=== PATIENT | female | born 1945 | race Caucasian/White ===

== ENCOUNTER 2018-04-08 07:45 | Day surgery (SDC) | payer OTHER ==
--- OUTSIDE RECORDS SUMMARY | 2018-04-08 07:50 | XMS REPORT | Clinical Summary ---
:1945 Author Organization [facility] Address [address] [place] [address] Care Team Providers Name Role Phone Angel Zamora MD Primary Care Provider Allergies Active Allergy Reactions Severity Noted Date Comments No Known Drug Allergies 12/28/2015 Current Medications Prescription Sig. Disp. Refills Start End Status Date Date losartan (COZAAR) 50 MG Take 50 mg by Active tablet mouth daily. hydrochlorothiazide Take 25 mg by Active (HYDRODIURIL) 25 MG mouth daily. tablet omeprazole-sodium Take 1 capsule Active bicarbonate (ZEGERID) by mouth daily 40-1.1 mg-gram per before capsule breakfast. LEVOTHYROXINE SODIUM Take 50 mcg by Active (LEVOTHYROXINE ORAL) mouth daily. cycloSPORINE (RESTASIS) Restasis 0.05 % Active 0.05 % ophthalmic eye drops in a emulsion dropperette meclizine (ANTIVERT) 25 TAKE 1 TABLET BY Active mg tablet MOUTH TWICE A DAY NEEDED FOR DIZZINESS triamcinolone (KENALOG) triamcinolone Active 0.1 % paste acetonide 0.1 % dental paste valACYclovir (VALTREX) valacyclovir 1 Active 1000 MG tablet gram tablet [id number] Apply as 1 Tube 0 03/10/[address] (MEDERMA) directed 16 gelIndications: Carpal tunnel syndrome, left, Aftercare following surgery fexofenadine (SHANNA) Take 180 mg by Active 180 MG tablet mouth as needed. aspirin (ECOTRIN) 81 MG Take 81 mg by Active enteric coated tablet mouth daily. CALCIUM CITRATE-VITAMIN Take 1 tablet by Active D2 ORAL mouth 2 (two) times a day. POLYETHYLENE GLYCOL Take by mouth. Active 3350 (MIRALAX ORAL) lansoprazole (PREVACID) Take 15 mg by Active 15 MG capsule mouth daily. dexlansoprazole Take 60 mg by Active (DEXILANT) 60 mg mouth daily. capsule primidone (MYSOLINE) 50 Start 1/2 pill 150 tablet 11 02/05/20 Active MG tablet HS for a week, 18 then increase as instructed up to 5 pills HS DULoxetine (CYMBALTA) TAKE ONE CAPSULE 30 capsule 3 02/12/20 Active 60 MG capsule BY MOUTH DAILY 18 VAGIFEM 10 mcg vaginal INSERT ONE TAB 24 tablet 0 03/18/20 Active tablet VAGINALLY 2 18 TIMES A WEEK DIRECTED venlafaxine (EFFEXOR) Take 75 mg by Discontinued 75 MG tablet mouth every 018 evening. propranolol LA (INDERAL propranolol ER Discontinued LA) 60 MG 24 hr capsule 60 mg capsule,24 018 hr,extended release scopolamine APPLY TO SKIN Discontinued (TRANSDERM-SCOP) 1.5 mg DIRECTED 018 (1 mg over 3 days) amoxicillin (AMOXIL) TAKE 4 CAPSULES Discontinued 500 MG capsule BY MOUTH 1 HOUR 018 PRIOR TO APPOINTMENT anastrozole (ARIMIDEX) anastrozole 1 mg Discontinued 1 mg chemo tablet tablet 018 azithromycin (AZASITE) 1 DROP IN BOTH Discontinued 1 % ophthalmic solution EYES DAILY FOR1 018 WEEK OUT OF EVERY MONTH azithromycin azithromycin 250 Discontinued (ZITHROMAX) 250 MG mg tablet 018 tablet chlordiazepoxide-clidin TAKE ONE CAPSULE Discontinued ium (LIBRAX) 5-2.5 mg BY MOUTH TWICE A 018 per capsule DAY ciprofloxacin (CIPRO) ciprofloxacin Discontinued 500 MG tablet 500 mg tablet 018 erythromycin 0.5% APPLY TO EYELIDS Discontinued (ILOTYCIN) ophthalmic AT BEDTIME FOR 1 018 ointment WEEK fluconazole (DIFLUCAN) TAKE 1 TABLET BY Discontinued 150 MG tablet MOUTH NOW 018 gabapentin (NEURONTIN) gabapentin 300 11/01/19 Discontinued 300 MG capsule mg capsule 12 018 minocycline minocycline 100 Discontinued (MINOCIN,DYNACIN) 100 mg capsule 018 MG capsule tolterodine (DETROL) 1 tolterodine 1 mg Discontinued MG tablet tablet 018 valACYclovir (VALTREX) TAKE 1 TABLET BY Discontinued 500 MG tablet MOUTH EVERY DAY 018 silicone adhesive 1.5 X Apply as 1 each 0 03/10/20 Discontinued 3 " sheetIndications: directed 16 018 Carpal tunnel syndrome, left, Aftercare following surgery YUVAFEM 10 mcg vaginal INSERT 10 MCG 12 tablet 1 03/29/20 Discontinued tablet INTO THE VAGINA 17 017 2 TIMES WEEKLY. VAGIFEM 10 mcg vaginal INSERT 10 MCG 12 tablet 0 06/25/20 Discontinued tablet INTO THE VAGINA 17 018 2 TIMES WEEKLY. VAGIFEM 10 mcg vaginal INSERT ONE TAB 24 tablet 0 10/01/19 Discontinued tablet VAGINALLY 2 18 018 TIMES A WEEK DIRECTED esomeprazole (NexIUM) Take 40 mg by Discontinued 40 MG capsule mouth daily 018 before breakfast. FLUoxetine (PROzac) 40 Take 40 mg by Discontinued MG capsule mouth daily. 018 desvenlafaxine Take 1 tablet 30 tablet 11 10/15/19 Discontinued (PRISTIQ) 50 MG 24 hr (50 mg total) by 18 018 tablet mouth daily. DULoxetine (CYMBALTA) Take 30 mg by Discontinued 30 MG capsule mouth daily. 018 DULoxetine (CYMBALTA) Take 60 mg by Discontinued 60 MG capsule mouth daily. 018 propranolol (INDERAL) 1-2 pill PRN for 90 tablet 11 12/05/19 Discontinued 10 MG tablet tremor up to tid 18 018 VAGIFEM 10 mcg vaginal INSERT ONE TAB 24 tablet 0 12/21/19 Discontinued tablet VAGINALLY 2 18 018 TIMES A WEEK DIRECTED topiramate (TOPAMAX) 25 Start 1 pill HS 120 tablet 11 01/22/20 Discontinued MG tablet for a week, then 18 018 increase as instructed up to 2 pills bid Active Problems Problem Noted Date Pain of hand 02/29/2016 Carpal tunnel syndrome, left 02/29/2016 Psychosis 12/28/2015 Seizure disorder 12/28/2015 Transient ischemia 12/28/2015 Flushing 09/28/2011 Malignant neoplasm of breast 09/28/2011 Reduced libido 09/28/2011 Encounters Date Type Specialty Care Team Description 04/05/2018 Transcribe Orders Access Anu Richards Malignant neoplasm Farooq Jerez MD of left female breast, unspecified estrogen receptor status, unspecified site of breast (Primary Dx) 03/18/2018 Refill Oncology nAu Richards MD 03/14/2018 Orders Only Oncology Kerry South, Malignant neoplasm MA of left female breast, unspecified estrogen receptor status, unspecified site of breast (Primary Dx) 03/11/2018 Telephone Oncology Anu Richards MD 03/01/2018 Telephone Neurology Vanda Hill MD 02/11/2018 Refill Psychiatry Vincent Boogie MD 02/04/2018 Office Visit Neurology Vanda Hill MD Essential tremor (Primary Dx); Depression, unspecified depression type 01/21/2018 Telephone Neurology Vanda Hill MD 01/09/2018 Office Visit Psychiatry Vincent Boogie Dysthytao Driver MD 12/19/2017 Refill Oncology Anu Richards MD 12/04/2017 Office Visit Neurology Vanda Hill MD Essential tremor (Primary Dx); Depression, unspecified depression type 11/02/2017 Abstract Psychiatry Joselin Sheets 11/02/2017 Refill Psychiatry Joselin Sheets 10/15/2017 Office Visit Psychiatry Vincent Boogie Moderate episode of MD Neisha recurrent major depressive disorder 09/28/2017 Refill Oncology Anu Richards MD 07/30/2017 Hospital Encounter Radiation Oncology Nicho Link MD 06/24/2017 Refill Oncology Anu Richards MD after 04/07/2017 Family History Medical History Relation Name Comments Kidney disease Mother Cancer Sister Malignant tumor of breast Cancer Sister melanoma Relation Name Status Comments Mother Sister Sister Social History Tobacco Use Types Packs/Day Years Used Date Never Smoker Smokeless Tobacco: Never Used Alcohol Use Drinks/Week oz/Week Comments Yes Occasional Sex Assigned at Date Recorded Not on file Last Filed Vital Signs Vital Sign Reading Time Taken Blood Pressure 135/88 02/04/2018 1:28 PM CDT Pulse 93 02/04/2018 1:28 PM CDT Temperature - - Respiratory Rate - - Oxygen Saturation - - Inhaled Oxygen Concentration - - Weight 67.7 kg (149 lb 3.2 oz) 02/04/2018 1:28 PM CDT Height 152.4 cm (5') 02/04/2018 1:28 PM CDT Body Mass Index 29.14 02/04/2018 1:28 PM CDT Plan of Treatment Date Type Specialty Care Team Description 04/23/2018 Appointment Radiology Anu Richards MD [address] [id number] 04/23/2018 Appointment Radiology Anu Richards MD [address] [place] [phone] 04/25/2018 Office Visit Oncology Anu Richards MD [address] [place] [address] [phone] 05/06/2018 Office Visit Neurology Vanda Hill MD [address] [phone] 07/29/2018 Appointment [place] [address] [facility] [address] [place] [address] Health Maintenance Due Date Last Done Comments COLON CANCER SCREENING 1996 SHINGRIX VACCINE (#1) 1996 ZOSTER VACCINE 2006 PNEUMOCOCCAL POLYSACCHARIDE VACCINE 12/18/2011 AGE 65 AND OVER PNEUMOCOCCAL-13 12/18/2011 INFLUENZA VACCINE 03/20/2018 BREAST CANCER SCREENING 02/28/2019 02/28/2017, 02/07/2016, 02/07/2016, Additional history exists Results Not on fileafter 04/07/2017 Insurance Payer Benefit Plan / Group Subscriber ID Type Phone Address MEDICARE MEDICARE PART A AND B xxxxxxxxxx Medicare [place], [place] AETNA AETNA HMO,POS,EPO, MC/EC xxxxxxxxx HMO DR [address] [phone] [place], [facility] [phone]
--- OUTSIDE RECORDS SUMMARY | 2018-04-08 07:50 | XMS REPORT | Continuity of Care Document ---
:1945 Author Organization Interface Problems Problem Status Onset Classification Date Comments Source Date Reported PREVENTIVE HEALTH Active 02/27/20 Condition 02/26/2015 CARE 15 Medical Group Screening - Active 02/27/20 Problem 01/09/2018 Data health 15 migrated Medical check<sup>3</sup> from [employer] on 03/24/15. PHARYNGITIS, Active 12/23/19 Condition 02/26/2015 ACUTE 15 Medical Group Acute Active 12/23/19 Problem 01/09/2018 Data pharyngitis<sup>1 15 migrated Medical </sup> from [employer] on 02/24/15. DYSTONIA Active 04/01/20 Condition 02/26/2015 14 Medical Group Dystonia<sup>2</s Active 04/01/20 Problem 01/09/2018 Data up> 14 migrated Medical from [employer] [facility] [employer] on 02/24/15. 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 Condition 02/26/2015 13 Medical Group NEED PROPHYLACTIC Active 05/21/20 Condition 02/26/2015 VACCINATION&INOCU 13 Medical LATION FLU Group ROUTINE GENERAL Inactive 01/07/20 Condition 02/26/2015 MEDICAL 13 Medical EXAM@HEALTH CARE Group FACL ONYCHOMYCOSIS, Active 01/07/20 Condition 02/26/2015 TOENAILS 13 Medical Group HYPOTHYROIDISM Active Condition 02/26/2015 Medical Group HYPERTENSION Active Condition 02/26/2015 Medical Group BREAST CANCER Active Condition 02/26/2015 Medical Group Allergic rhinitis Resolved Problem 01/09/2018 Medical Group Blood transfusion Resolved Problem 01/09/2018 Medical Group Breast cancer Resolved Problem 01/09/2018 Medical Group Dizziness Resolved Problem 01/09/2018 Medical Group GERD (<span Resolved Problem 01/09/2018 ID="[id number]" Medical >Confirmed</span> Group ) IBS (<span Resolved Problem 01/09/2018 ID="[id number]" Medical >Confirmed</span> Group ) Night sweats Resolved Problem 01/09/2018 Medical Group Thyroid disease Resolved Problem 01/09/2018 Medical Group Medications Medication Details Route Status Patient Ordering Order Source Instructions Provider Date Fluoxetine 20 MG Oral 20 mg=1 Active Capsule [Prozac] cap, PO, 2018 Medical Daily, # 90 Group cap, 1 Refill(s), Pharmacy: [facility] #[id number] losartan 50 mg oral See Active tablet Instruction 2018 Medical s, # 90 Group tab, TAKE 1 TABLET BY MOUTH EVERY DAY, Pharmacy: [facility] #[id number] losartan 50 mg oral See No tablet Instruction Longer 2018 Medical s, # 90 Active Group tab, TAKE 1 TABLET BY MOUTH EVERY DAY, Pharmacy: [facility] #7470 levothyroxine 50 mcg See Active (0.05 mg) oral tablet Instruction 2018 Medical s, # 90 Group tab, Refill(s) 2, TAKE 1 TABLET BY MOUTH EVERY DAY, Pharmacy: [facility] #7470 Hydrochlorothiazide 25 mg=1 Active 25 MG Oral Tablet tab, PO, 2018 Medical Daily, # 90 Group tab, 3 Refill(s), Pharmacy: [facility] #7470 Fluoxetine 20 MG Oral 20 mg=1 Active Capsule [Prozac] cap, PO, 2016 Medical Daily, # 90 Group cap, 1 Refill(s), Pharmacy: [facility]/pharmac y #7470 FLUoxetine 10 mg oral See Active capsule Instruction 2017 Medical s, # 90 Group unknown unit, Refill(s) 2, TAKE ONE CAPSULE BY MOUTH EVERY DAY, Pharmacy: [facility]/pharm[facility] #7470 AZITHROMYCIN 250 MG 2 tabs No TABS today and Longer 2014 Medical one tab Active Group daily there after. MECLIZINE HCL 25 MG 1 tablet No TABS twice a day Longer 2013 Medical PRN for Active Group Dizziness MECLIZINE HCL 25 MG 1 tablet Active TABS twice a day 2013 Medical PRN for Group Dizziness COZAAR 50 MG TABS one daily Active 2013 Medical Group COZAAR 50 MG TABS one daily Active 2013 Medical Group COZAAR 50 MG TABS one daily Active 2013 Medical Group TRANSDERM-SCOP 1.5 MG as directed Active PT72 2013 Medical Group TRANSDERM-SCOP 1.5 MG as directed Active PT72 2013 Medical Group ZOVIRAX 5 % OINT Apply 4 to Active MH 5 times day 2013 Medical Group ZOVIRAX 5 % OINT Apply 4 to Active MH 5 times day 2013 Medical Group GABAPENTIN 300 MG TAKE 1 No 01/06/ MH CAPS TABLET BY Longer 2012 Medical MOUTH THREE Active Group TIMES A DAY EFFEXOR XR 75 MG 1 tablet Active MH [id number] daily 2012 Medical Group CALTRATE 600+D PLUS 1 daily Active MH 600-400 MG-UNIT TABS 2012 Medical Group ZEGERID OTC 20-1100 1 daily Active MH MG CAPS 2012 Medical Group GABAPENTIN 300 MG TAKE 1 No 01/06/ MH CAPS TABLET BY Longer 2012 Medical MOUTH THREE Active Group TIMES A DAY EFFEXOR XR 75 MG 1 tablet Active MH [id number] daily 2012 Medical Group GABAPENTIN 300 MG TAKE 1 No 01/06/ MH CAPS TABLET BY Longer 2012 Medical MOUTH THREE Active Group TIMES A DAY EFFEXOR XR 75 MG 1 tablet Active MH [id number] daily 2012 Medical Group GABAPENTIN 300 MG TAKE 1 No 01/06/ MH CAPS TABLET BY Longer 2012 Medical MOUTH THREE Active Group TIMES A DAY GABAPENTIN 300 MG TAKE 1 No 01/06/ MH CAPS TABLET BY Longer 2012 Medical MOUTH THREE Active Group TIMES A DAY LEVOTHYROXINE SODIUM 1 tablet Active MH 50 MCG TABS daily 2012 Medical Group LEVOTHYROXINE SODIUM 1 tablet Active MH 50 MCG TABS daily 2012 Medical Group LEVOTHYROXINE SODIUM 1 tablet Active MH 50 MCG TABS daily 2012 Medical Group LEVOTHYROXINE SODIUM 1 tablet Active MH 50 MCG TABS daily 2013 Medical Group HYDROCHLOROTHIAZIDE TAKE 1 Active MH 25 MG TABS TABLET BY Medical MOUTH DAILY Group FEXOFENADINE HCL 180 TAKE 1 Active MH MG TABS TABLET BY Medical MOUTH DAILY Group NEEDED ANASTROZOLE 1 MG TABS TAKE 1 Active MH TABLET BY Medical MOUTH DAILY Group VAGIFEM 10 MCG TABS TAKE 1 Active MH TABLET BY Medical MOUTH TWICE Group A WEEK ASPIRIN 81 MG TABS TAKE 1 Active MH TABLET BY Medical MOUTH DAILY Group ANASTROZOLE 1 MG TABS TAKE 1 Active MH TABLET BY Medical MOUTH DAILY Group VAGIFEM 10 MCG TABS TAKE 1 Active MH TABLET BY Medical MOUTH TWICE Group A WEEK ASPIRIN 81 MG TABS TAKE 1 Active MH TABLET BY Medical MOUTH DAILY Group HYDROCHLOROTHIAZIDE TAKE 1 Active MH 25 MG TABS TABLET BY Medical MOUTH DAILY Group ANASTROZOLE 1 MG TABS TAKE 1 Active MH TABLET BY Medical MOUTH DAILY Group ANASTROZOLE 1 MG TABS TAKE 1 Active MH TABLET BY Medical MOUTH DAILY Group Allergies, Adverse Reactions, Alerts Substance Category Reaction Severity Reaction Status Date Comments Source type Reported NKDA<sup>1, Assertion Drug Active Data 2</sup> allergy 5 migrated Medical from [employer] on 10/12/15. Originally documented as NKA. Immunizations Immunization Date Site Status Last Comments Source Given Updated influenza completed Medical immunization 4 Group (Flu Vax) has been administered Hx influenza Left completed GE Result Comment: Medical vaccine-unspecif 4 Deltoid fluzone Group ied<sup>1</sup> (quadrivalent) no preservative (>3 yrs.) [[id number]]. Migrated from OBS ; Data migrated from [employer] on 09/28/2015. influenza completed Medical immunization 3 Group (Flu Vax) has been administered pneumococcal completed Medical immunization 2 Group administered pneumococcal completed GE Result Comment: Medical 23-valent 2 pneumovax. Group vaccine<sup>2</s Migrated from up> OBS ; Data migrated from [employer] on 09/28/2015. zoster vaccine completed GE Result Comment: Medical live<sup>3</sup> 9 zostavax. Group Migrated from OBS ; Data migrated from [employer] on 09/28/2015. dT (Diphtheria completed Medical and Tetanus) 9 Group booster dT (Diphtheria completed Medical and Tetanus) 9 Group booster given tetanus-diphther 06/11/200 completed GE Result Comment: Medical ia 9 historical. Group toxoids<sup>4</s Migrated from up> OBS ; Data migrated from [employer] on 09/28/2015. influenza completed Medical immunization 8 Group (Flu Vax) has been administered Results Order Name Results Value Reference Date Interpretation Comments Source Range Chemistry CHOLESTEROL 210 - 199 mg/dl 2014 Medical Group Chemistry TRIGLYCERIDE 223 - 149 mg/dl 2014 Medical Group Chemistry HDL 60 >=61 mg/dl 2014 Medical Group Chemistry LDL 105 - 99 mg/dl 2014 Medical Group Chemistry SODIUM 131 135 - 145 MEQ/L 2014 Medical mmol/L Group Chemistry POTASSIUM 3.7 3.5 - 5.1 MEQ/L 2014 Medical mmol/L Group Chemistry CREATININE 0.8 0.5 - 1.4 mg/dL 2014 Medical Group Chemistry BUN 14 7 - 22 mg/dL 2014 Medical Group Chemistry BUN/CREAT 18 6 - 25 2014 Medical Group Chemistry ALBUMIN 4.2 3.5 - 5.0 g/dL 2014 Medical Group Chemistry CALCIUM 9.5 8.5 - 10.5 mg/dL 2014 Medical Group Chemistry SGPT (ALT) 18 U/L 0 - 65 2014 Medical Group Chemistry SGOT (AST) 11 U/L 0 - 37 2014 Medical Group Chemistry ALK PHOS 96 U/L 39 - 136 2014 Medical Group Chemistry TSH 1.300 0.360 - uIU/mL 3.740 2014 Medical Group Hematology HGB 12.0 12.0 - 16.0 g/dL 2014 Medical Group Hematology HCT 35.1 % 36.0 - 48.0 2014 Medical Group Hematology PLATELETS 438 133 - 450 K/CMM 2014 Medical /mm3 Group Chemistry BUN 8 mg/dL 7 - 22 2013 Medical Group Chemistry CREATININE 0.6 0.5 - 1.4 mg/dL 2013 Medical Group Chemistry SODIUM 125 135 - 145 MEQ/L 2013 Medical mmol/L Group Chemistry POTASSIUM 3.9 3.5 - 5.1 08/ MH MEQ/L 2013 Medical mmol/L Group Chemistry CALCIUM 9.3 8.5 - 10.5 08/ MH mg/dL 2013 Medical Group Chemistry BUN 8 mg/dL 7 - 2013 Medical Group Chemistry CREATININE 0.6 0.5 - 1.4 08/ MH mg/dL 2013 Medical Group Chemistry SODIUM 125 135 - 145 08/ MH MEQ/L 2013 Medical mmol/L Group Chemistry POTASSIUM 3.9 3.5 - 5.1 08/ MH MEQ/L 2013 Medical mmol/L Group Chemistry CALCIUM 9.3 8.5 - 10.5 08/ mg/dL 2013 Medical Group Chemistry SODIUM 125 135 - 145 08// MH MEQ/L 2013 Medical mmol/L Group Chemistry POTASSIUM 3.9 3.5 - 5.1 04/01/ MH MEQ/L 2013 Medical mmol/L Group Chemistry CALCIUM 9.3 8.5 - 10.5 08/ mg/dL 2013 Medical Group Chemistry SODIUM 125 135 - 145 04/01/ MH MEQ/L 2013 Medical mmol/L Group Chemistry POTASSIUM 3.9 3.5 - 5.1 08/ MH MEQ/L 2013 Medical mmol/L Group Chemistry CALCIUM 9.3 8.5 - 10.5 08/ MH mg/dL 2013 Medical Group Chemistry TSH 1.380 0.360 - 25/ MH uIU/mL 3.740 2013 Medical Group Chemistry BUN 9 mg/dL 7 - 02/11/ 2013 Medical Group Chemistry CREATININE 0.6 0.5 - 1.4 02/11/ MH mg/dL 2013 Medical Group Chemistry SODIUM 133 135 - 145 02/11/ MH MEQ/L 2013 Medical mmol/L Group Chemistry POTASSIUM 4.3 3.5 - 5.1 06/ MH MEQ/L 2013 Medical mmol/L Group Chemistry TSH 1.380 0.360 - 25/ MH uIU/mL 3.740 2013 Medical Group Chemistry BUN 9 mg/dL 7 - 02/11/ 2013 Medical Group Chemistry CREATININE 0.6 0.5 - 1.4 06// MH mg/dL 2013 Medical Group Chemistry SODIUM 133 135 - 145 06/25/ MH MEQ/L 2013 Medical mmol/L Group Chemistry POTASSIUM 4.3 3.5 - 5.1 06/ MH MEQ/L 2013 Medical mmol/L Group Chemistry CALCIUM 9.5 8.5 - 10.5 06/25/ MH mg/dL 2013 Medical Group Chemistry SODIUM 133 135 - 145 06/25/ MH MEQ/L 2013 Medical mmol/L Group Chemistry POTASSIUM 4.3 3.5 - 5.1 06/25/ MH MEQ/L 2013 Medical mmol/L Group Chemistry CALCIUM 9.5 8.5 - 10.5 06/25/ MH mg/dL 2013 Medical Group Chemistry TSH 1.520 0.360 - 10/02/ MH uIU/mL 3.740 2012 Medical Group Chemistry TSH 1.520 0.360 - 10/02/ MH uIU/mL 3.740 2012 Medical Group Chemistry TSH 1.520 0.360 - 10/02/ MH uIU/mL 3.740 2012 Medical Group Chemistry CHOLESTEROL 202 120 - 200 05/20/ MH mg/dl 2012 Medical Group Chemistry TRIGLYCERIDE 127 0 - 200 05/20/ MH mg/dl 2012 Medical Group Chemistry HDL 83 >=35 05/20/ MH mg/dl 2012 Medical Group Chemistry LDL 94 0 - 129 05/20/ MH mg/dl 2012 Medical Group Chemistry SODIUM 132 135 - 145 05/20/ MH MEQ/L 2012 Medical mmol/L Group Chemistry CHOLESTEROL 202 120 - 200 05/20/ MH mg/dl 2012 Medical Group Chemistry TRIGLYCERIDE 127 0 - 200 05/20/ MH mg/dl 2012 Medical Group Chemistry HDL 83 >=35 05/20/ MH mg/dl 2012 Medical Group Chemistry LDL 94 0 - 129 05/20/ MH mg/dl 2012 Medical Group Chemistry SODIUM 132 135 - 145 05/20/ MH MEQ/L 2012 Medical mmol/L Group Chemistry POTASSIUM 4.2 3.5 - 5.1 05/20/ MH MEQ/L 2012 Medical mmol/L Group Chemistry CREATININE 0.5 0.5 - 1.4 05/20/ MH mg/dL 2012 Medical Group Chemistry BUN 9 mg/dL 7 - 22 05/20/ MH 2012 Medical Group Chemistry BUN/CREAT 18 6 - 25 05/20/ MH 2012 Medical Group Chemistry ALBUMIN 4.5 3.5 - 5.0 05/20/ MH g/dL 2012 Medical Group Chemistry CALCIUM 9.3 8.5 - 10.5 05/20/ MH mg/dL 2012 Medical Group Chemistry SGPT (ALT) 17 U/L 0 - 65 05/20/ MH 2012 Medical Group Chemistry SGOT (AST) 15 U/L 0 - 37 2012 Medical Group Chemistry ALK PHOS 107 U/L 39 - 136 2012 Medical Group Chemistry TSH 0.830 0.360 - uIU/mL 3.740 2012 Medical Group Chemistry SGOT (AST) 15 U/L 0 - 37 2012 Medical Group Chemistry ALK PHOS 107 U/L 39 - 136 2012 Medical Group Chemistry TSH 0.830 0.360 - uIU/mL 3.740 2012 Medical Group Hematology HGB 13.4 12.0 - 16.0 g/dL 2012 Medical Group Hematology HCT 38.3 % 36.0 - 48.0 2012 Medical Group Hematology PLATELETS 399 133 - 450 K/CMM 2012 Medical /mm3 Group [employer] PAP SMEAR Done 2000 Medical Group Cad Programmer PAP SMEAR Done 2000 Medical Group Cad Programmer PAP SMEAR Done 2000 Medical Group Pathology PAP SMEAR Done 2000 Medical Group Pathology PAP SMEAR Done 2000 Medical Group Vital Signs Vital Sign Value Date Comments Source Weight 148 02/26/2015 Medical Group Height 62 02/26/2015 Medical Group Temperature Oral (F) 97.7 F 02/26/2015 Medical Group Heart Rate 84 02/26/2015 Medical Group Systolic (mm Hg) 135 02/26/2015 Medical Group Diastolic (mm Hg) 83 02/26/2015 Medical Group Weight 148 12/22/2014 Medical Group Temperature Oral (F) 98.4 F 12/22/2014 Medical Group Heart Rate 94 12/22/2014 Medical Group Systolic (mm Hg) 130 12/22/2014 Medical Group Diastolic (mm Hg) 84 12/22/2014 Medical Group Weight 145 07/10/2014 Medical Group Height 62 07/10/2014 Medical Group Systolic (mm Hg) 130 07/10/2014 Medical Group Temperature Oral (F) 97.9 F 07/10/2014 Medical Group Heart Rate 82 07/10/2014 Medical Group Diastolic (mm Hg) 86 07/10/2014 Medical Group Weight 140 04/01/2014 Medical Group Temperature Oral (F) 97.9 F 04/01/2014 Medical Group Heart Rate 86 04/01/2014 Medical Group Systolic (mm Hg) 124 04/01/2014 Medical Group Diastolic (mm Hg) 86 04/01/2014 Medical Group Weight 145 02/11/2014 Medical Group Temperature Oral (F) 96.6 F 02/11/2014 Medical Group Heart Rate 74 02/11/2014 Medical Group Systolic (mm Hg) 130 02/11/2014 Medical Group Diastolic (mm Hg) 90 02/11/2014 Medical Group Weight 140 05/21/2013 Medical Group Temperature Oral (F) 97.3 F 05/21/2013 Medical Group Heart Rate 74 05/21/2013 Medical Group Systolic (mm Hg) 130 05/21/2013 Medical Group Diastolic (mm Hg) 90 05/21/2013 Medical Group Weight 135 01/06/2013 Medical Group Temperature Oral (F) 97.4 F 01/06/2013 Medical Group Heart Rate 76 01/06/2013 Medical Group Height 62 01/06/2013 Medical Group Systolic (mm Hg) 126 01/06/2013 Medical Group Diastolic (mm Hg) 84 01/06/2013 Medical Group Encounters Location Location Encounter Encounter Reason Attending ADM DC Status Source Details Type Number For Provider Date Date Visit [facility] [id number] Jeff 05/21 05/21 [place] 110 [facility] Office [id number] [facility]/21 [facility] [id number] Jeff02/11 [place] Visit 320 Medical Medical [facility] Group [facility] Lab Report [id number] 02/11 [place] 780 Medical Medical MD [facility] Group [facility] Office [id number] [facility] Lab Report [id number] Jeff 04/01 04/01 [place] 240 Medical Medical MD Group Group [facility] Office [id number] Jeff 07/10 07/10 [place] Visit 420 [facility] Medical Medical MD Group Group [facility] Office [id number] Jeff 12/22 12/22 Jeff[place] Visit 410 [facility] Medical Medical MD Group Group [facility] Office [id number] Jeff 02/26 02/26 [place] Visit 620 [facility] Medical Medical MD Group Group [facility] Outpatient [id number] JEFF 02/26 [facility] [place] Outpatient [id number] JEFF 09/02 [facility] [place] Outpatient [id number] JEFF 12/20 [facility] [place] Outpatient [id number] JEFF 02/09 [facility] [place] Outpatient [id number] JEFF 02/21 [facility] [place] Outpatient [id number] JEFF 03/10 [facility] [place] Outpatient [id number] JEFF 04/13 [facility] Outpatient [id number] JEFF 12/26 [facility] [place] Outpatient [id number] JEFF 06/14 [facility] [place] [facility] Phone [id number] 07/09 07/11 Primary Message /2016 [facility] Phone [id number] 07/10 07/12 Primary Message /2016 [facility] Phone [id number] 08/22 08/24 Primary Message /2017 [facility] Phone [id number] 09/28 09/30 Primary Message /2017 [facility] Phone [id number] 10/02 10/04 Primary Message /2017 [facility] Procedures Procedure Code Date Perfomer Comments Source mammogram 17138 12/26/2011 [facility] mammogram 28542 12/26/2011 Completed Medical Group bone density 4002.65 10/16/2005 [facility] vaginal Pap smear 58153 06/21/2001 [facility] results Group Carpal tunnel release [id number] Medical Group Cholecystectomy [id number] Medical Group Excision of skin [id number] Nose-- 11/2015 Medical carcinoma<sup>1</sup> Group Hip [id number] RT hip Medical replacement<sup>2</covarrubias Group p> Hysterectomy [id number] Medical Group Laminectomy<sup>3</covarrubias [id number] Lumbar Medical p> Group
--- OUTSIDE RECORDS SUMMARY | 2018-04-08 07:51 | XMS REPORT | Continuity of Care Document ---
:1945 Author Organization [facility] Care Team Providers Name Role Phone MD Sera, Angel Unavailable Unavailable Insurance Providers Payer name Policy type / Policy ID Covered green party ID Policy Lu Coverage type [place] [employer] - [place] CHEMICAL (MEDICARE SUPPLEMENT) [place]: [employer] - [place] CHEMICAL (MEDICARE SUPPLEMENT) Encounters Encounter Performer Location Date Lab Report Angel Zamora MD [facility] Apr 01, 2014 Problems Problem Effective Dates Problem Status HYPOTHYROIDISM Active HYPERTENSION Active BREAST CANCER Active ROUTINE GENERAL MEDICAL EXAM@HEALTH CARE FACL January 06, 2013 Inactive ONYCHOMYCOSIS, TOENAILS January 06, 2013 Active ALLERGIC RHINITIS May 21, 2013 Active 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, 2013 Active NEED PROPHYLACTIC VACCINATION&INOCULATION FLU May 21, 2013 Active DIZZINESS Feb 11, 2014 Active HYPOKALEMIA Feb 11, 2014 Active DYSTONIA Apr 01, 2014 Active Procedures Date Description Comments December 26, 2011 mammogram Completed Oct 16, 2005 bone density Done December 26, 2011 mammogram Done Jun 21, 2001 vaginal Pap smear results Done January 06, 2013 smoking status never smoker Feb 11, 2014 smoking status Never smoker Apr 01, 2014 smoking status Never smoker Medications Medication Instructions Start Date Status LEVOTHYROXINE SODIUM 50 MCG TABS 1 tablet daily December 19, 2012 Active HYDROCHLOROTHIAZIDE 25 MG TABS TAKE 1 TABLET BY MOUTH DAILY Active FEXOFENADINE HCL 180 MG TABS TAKE 1 TABLET BY MOUTH DAILY Active NEEDED ANASTROZOLE 1 MG TABS TAKE 1 TABLET BY MOUTH DAILY Active VAGIFEM 10 MCG TABS TAKE 1 TABLET BY MOUTH TWICE Active A WEEK ASPIRIN 81 MG TABS TAKE 1 TABLET BY MOUTH DAILY Active GABAPENTIN 300 MG CAPS TAKE 1 TABLET BY MOUTH THREE Inactive TIMES A DAY EFFEXOR XR 75 MG [id number] 1 tablet daily January 06, 2013 Active CALTRATE 600+D PLUS 600-400 MG-UNIT 1 daily January 06, 2013 Active TABS ZEGERID OTC 20-1100 MG CAPS 1 daily January 06, 2013 Active ZOVIRAX 5 % OINT Apply 4 to 5 times day Nov 14, 2013 Active TRANSDERM-SCOP 1.5 MG PT72 as directed Feb 11, 2014 Active COZAAR 50 MG TABS one daily Apr 01, 2014 Active Immunizations Vaccine Date Status dT (Diphtheria and Tetanus) booster Jan 28, 2009 completed influenza immunization (Flu Vax) has been administered Jun 16, 2008 completed pneumococcal immunization administered Feb 20, 2012 completed influenza immunization (Flu Vax) has been administered May 21, 2013 completed Vital Signs Date Description Test Result January 06, 2013 weight E&M WEIGHT 135 lb January 06, 2013 temperature E&M TEMPERATURE 97.4 deg f January 06, 2013 pulse rate E&M PULSE RATE 76 /min January 06, 2013 height E&M HEIGHT 62 in January 06, 2013 blood pressure, systolic BP SYSTOLIC 126 mm Hg January 06, 2013 blood pressure, diastolic BP DIASTOLIC 84 mm Hg May 21, 2013 weight E&M WEIGHT 140 lb May 21, 2013 temperature E&M TEMPERATURE 97.3 deg f May 21, 2013 pulse rate E&M PULSE RATE 74 /min May 21, 2013 blood pressure, systolic BP SYSTOLIC 130 mm Hg May 21, 2013 blood pressure, diastolic BP DIASTOLIC 90 mm Hg Feb 11, 2014 weight E&M WEIGHT 145 lb Feb 11, 2014 temperature E&M TEMPERATURE 96.6 deg f Feb 11, 2014 pulse rate E&M PULSE RATE 74 /min Feb 11, 2014 blood pressure, systolic BP SYSTOLIC 130 mm Hg Feb 11, 2014 blood pressure, diastolic BP DIASTOLIC 90 mm Hg Apr 01, 2014 weight E&M WEIGHT 140 lb Apr 01, 2014 temperature E&M TEMPERATURE 97.9 deg f Apr 01, 2014 pulse rate E&M PULSE RATE 86 /min Apr 01, 2014 blood pressure, systolic BP SYSTOLIC 124 mm Hg Apr 01, 2014 blood pressure, diastolic BP DIASTOLIC 86 mm Hg Results Date Description Test Name Value Reference Interpretation Status January 06, hemoglobin, blood HGB 13.4 g/dL 12.0-16.0 2012January 06, hematocrit, blood HCT 38.3 % 36.0-48.0 2012January 06, platelet count PLATELETS 399 K/CMM [phone] /mm3 Apr 01, urea nitrogen, blood BUN 8 mg/dL 7-22 2013Apr 01, creatinine, serum CREATININE 0.6 mg/dL 0.5-1.4 2013Apr 01, sodium, serum SODIUM 125 MEQ/L 135-145 Low 2013 mmol/L Apr 01, potassium, serum POTASSIUM 3.9 MEQ/L 3.5-5.1 2013 mmol/L Apr 01, calcium, serum CALCIUM 9.3 mg/dL 8.5-10.5 2013January 06, cholesterol, serum CHOLESTEROL 202 mg/dl 120-200 High 2012January 06, triglyceride, serum, TRIGLYCERIDE 127 mg/dl 0-200 2012 fasting January 06, HDL cholesterol, HDL 83 mg/dl >=35 2012January 06, LDL cholesterol, LDL 94 mg/dl 0-129 2012January 06, sodium, serum SODIUM 132 MEQ/L 135-145 Low 2012 mmol/L January 06, potassium, serum POTASSIUM 4.2 MEQ/L 3.5-5.1 2012 mmol/L January 06, creatinine, serum CREATININE 0.5 mg/dL 0.5-1.4 2012January 06, urea nitrogen, blood BUN 9 mg/dL -2012January 06, urea BUN/CREAT 18 null 6-2012 nitrogen/creatinine ratio, serum January 06, albumin, serum ALBUMIN 4.5 g/dL 3.5-5.0 2012January 06, calcium, serum CALCIUM 9.3 mg/dL 8.5-10.5 2012January 06, alanine SGPT (ALT) 17 U/L 0-65 2012 aminotransferase (SGPT), serum January 06, aspartate SGOT (AST) 15 U/L 0-37 2012 aminotransferase (SGOT), serum January 06, alkaline ALK PHOS 107 U/L 39-136 2012 phosphatase, serum January 06, thyroid stimulating TSH 0.830 0.360-3.740 2012 hormone, serum uIU/mL May 21, thyroid stimulating TSH 1.520 0.360-3.740 2012 hormone, serum uIU/mL Feb 11, thyroid stimulating TSH 1.380 0.360-3.740 2013 hormone, serum uIU/mL Feb 11, urea nitrogen, blood BUN 9 mg/dL -2013Feb 11, creatinine, serum CREATININE 0.6 mg/dL 0.5-1.4 2013Feb 11, sodium, serum SODIUM 133 MEQ/L 135-145 Low 2013 mmol/L Feb 11, potassium, serum POTASSIUM 4.3 MEQ/L 3.5-5.1 2013 mmol/L Feb 11, calcium, serum CALCIUM 9.5 mg/dL 8.5-10.5 2013Apr 01, urea nitrogen, blood BUN 8 mg/dL -2013Apr 01, creatinine, serum CREATININE 0.6 mg/dL 0.5-1.4 2013Apr 01, sodium, serum SODIUM 125 MEQ/L 135-145 Low 2013 mmol/L Apr 01, potassium, serum POTASSIUM 3.9 MEQ/L 3.5-5.1 2013 mmol/L Apr 01, calcium, serum CALCIUM 9.3 mg/dL 8.5-10.5 2013Jun 21, vaginal Pap smear PAP SMEAR Done null 2000 results
--- OUTSIDE RECORDS SUMMARY | 2018-04-08 07:51 | XMS REPORT | Continuity of Care Document ---
:1945 Author Organization [facility] Care Team Providers Name Role Phone MD Sera, Angel Unavailable Unavailable Insurance Providers Payer name Policy type / Policy ID Covered republican ID Policy Lu [place]age type [place] [employer] - [place] CHEMICAL (MEDICARE SUPPLEMENT) [place]: [employer] - [place] CHEMICAL (MEDICARE SUPPLEMENT) Encounters Encounter Performer Location Date Lab Report Angel Zamora MD [facility] Feb 11, 2014 Problems Problem Effective Dates Problem Status HYPOTHYROIDISM Active HYPERTENSION Active BREAST CANCER Active ROUTINE GENERAL MEDICAL EXAM@HEALTH CARE FACL January 06, 2013 Inactive ONYCHOMYCOSIS, TOENAILS January 06, 2013 Active ALLERGIC RHINITIS May 21, 2013 Active 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, 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 NEED PROPHYLACTIC VACCINATION&INOCULATION FLU May 21, 2013 Active DIZZINESS Feb 11, 2014 Active HYPOKALEMIA Feb 11, 2014 Active Procedures Date Description Comments December 26, 2011 mammogram Completed Oct 16, 2005 bone density Done December 26, 2011 mammogram Done Jun 21, 2001 vaginal Pap smear results Done January 06, 2013 smoking status never smoker Feb 11, 2014 smoking status Never smoker Medications Medication [...] TIMES A DAY EFFEXOR XR 75 MG [id number] 1 tablet daily January 06, 2013 Active CALTRATE 600+D PLUS 600-400 MG-UNIT 1 daily January 06, 2013 Active TABS ZEGERID OTC 20-1100 MG CAPS 1 daily January 06, 2013 Active ZOVIRAX 5 % OINT Apply 4 to 5 times day Nov 14, 2013 Active TRANSDERM-SCOP 1.5 MG PT72 as directed Feb 11, 2014 Active Immunizations Vaccine Date Status dT [...] pressure, diastolic BP DIASTOLIC 90 mm Hg Results Date Description Test Name Value Reference Interpretation Status January 06, hemoglobin, blood HGB 13.4 g/dL 12.0-16.0 2012January 06, hematocrit, blood HCT 38.3 % 36.0-48.0 2012January 06, platelet count PLATELETS 399 K/CMM [phone] /mm3 January 06, cholesterol, serum CHOLESTEROL 202 mg/dl 120-200 High 2012January 06, triglyceride, serum, TRIGLYCERIDE 127 mg/dl 0-200 2012 fasting January 06, HDL cholesterol, HDL 83 mg/dl >=35 2012 serum January 06, LDL cholesterol, LDL 94 mg/dl 0-129 2012 serum January 06, sodium, serum SODIUM 132 MEQ/L 135-145 Low 2012 mmol/L January 06, potassium, serum POTASSIUM 4.2 MEQ/L 3.5-5.1 2012 mmol/L January 06, creatinine, serum CREATININE 0.5 mg/dL 0.5-1.4 2012January 06, urea nitrogen, blood BUN 9 mg/dL 7-22 2012January 06, urea BUN/CREAT 18 null 6-25 2012 nitrogen/creatinine ratio, serum January 06, albumin, serum [...] 11, urea nitrogen, blood BUN 9 mg/dL 7-22 2013Feb 11, creatinine, serum CREATININE 0.6 mg/dL 0.5-1.4 2013Feb 11, sodium, serum SODIUM 133 MEQ/L 135-145 Low 2013 mmol/L Feb 11, potassium, serum POTASSIUM 4.3 MEQ/L 3.5-5.1 2013 mmol/L Feb 11, calcium, serum CALCIUM 9.5 mg/dL 8.5-10.5 2013Jun 21, vaginal Pap smear PAP SMEAR Done null 2000 results
--- OUTSIDE RECORDS SUMMARY | 2018-04-08 07:51 | XMS REPORT | Continuity of Care Document ---
:1945 Author Organization [facility] Care Team Providers Name Role Phone MD Sera, Angel Unavailable Unavailable Insurance Providers Payer name Policy type / Policy ID Covered democrat ID Policy Lu [place]age type [place] [employer] - [place] CHEMICAL (MEDICARE SUPPLEMENT) [place]: [employer] - [place] CHEMICAL (MEDICARE SUPPLEMENT) Encounters Encounter Performer Location Date Office Visit Angel Zamora MD [facility] Feb 11, 2014 Problems Problem Effective Dates [...] TIMES A DAY EFFEXOR XR 75 MG [id number] 1 tablet daily January 06, 2013 Active [...] 2012January 06, platelet count PLATELETS 399 K/CMM [phone] /mm3 January 06, cholesterol, serum CHOLESTEROL 202 [...]
--- OUTSIDE RECORDS SUMMARY | 2018-04-08 07:51 | XMS REPORT | Continuity of Care Document ---
:1945 Author Organization [facility] Care Team Providers Name Role Phone MD Zamora Luis Unavailable Unavailable Insurance Providers Payer name Policy type / Policy ID Covered republican ID Policy Lu [place]age type [place]: [employer] - [place] CHEMICAL (MEDICARE SUPPLEMENT) [place] [employer] Encounters Encounter Performer Location Date Office Visit Angel Zamora MD [facility] May 21, 2013 Problems Problem Effective Dates Problem Status HYPOTHYROIDISM Active HYPERTENSION Active BREAST CANCER Active ROUTINE GENERAL MEDICAL EXAM@HEALTH CARE FACL January 06, 2013 Inactive ONYCHOMYCOSIS, TOENAILS January 06, 2013 Active ALLERGIC RHINITIS May 21, 2013 Active 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, 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 Procedures Date Description Comments December 26, 2011 mammogram Completed Oct 16, 2005 bone density Done December 26, 2011 mammogram Done Jun 21, 2001 vaginal Pap smear results Done January 06, 2013 smoking status never smoker Medications Medication Instructions Start Date Status [...] TIMES A DAY EFFEXOR XR 75 MG [id number] 1 tablet daily January 06, 2013 Active CALTRATE 600+D PLUS 600-400 MG-UNIT 1 daily January 06, 2013 Active TABS ZEGERID OTC 20-1100 MG CAPS 1 daily January 06, 2013 Active Immunizations Vaccine Date Status dT (Diphtheria and Tetanus) booster given Jan 28, 2009 completed influenza immunization (Flu Vax) has been administered Jun 16, 2008 completed pneumococcal immunization administered Feb 20, 2012 completed influenza immunization (Flu Vax) has been administered May 21, 2013 completed Vital Signs Date Description Test Result January 06, 2013 weight E&M - 3141-9 WEIGHT 135 lb January 06, 2013 temperature E&M TEMPERATURE 97.4 deg f January 06, 2013 pulse rate E&M - 8867-4 PULSE RATE 76 /min January 06, 2013 height E&M - 8302-2 HEIGHT 62 in January 06, 2013 blood pressure, systolic - 8480-6 BP SYSTOLIC 126 mm Hg January 06, 2013 blood pressure, diastolic - 8462-4 BP DIASTOLIC 84 mm Hg May 21, 2013 weight E&M - 3141-9 WEIGHT 140 lb May 21, 2013 temperature E&M TEMPERATURE 97.3 deg f May 21, 2013 pulse rate E&M - 8867-4 PULSE RATE 74 /min May 21, 2013 blood pressure, systolic - 8480-6 BP SYSTOLIC 130 mm Hg May 21, 2013 blood pressure, diastolic - 8462-4 BP DIASTOLIC 90 mm Hg Results Date Description Test Name Value Reference Interpretation Status January 06, hemoglobin, blood HGB 13.4 g/dL 12.0-16.0 2012January 06, hematocrit, blood HCT 38.3 % 36.0-48.0 2012January 06, platelet count PLATELETS 399 K/CMM [phone] /mm3 January 06, cholesterol, serum CHOLESTEROL 202 [...] TSH 1.520 0.360-3.740 2012 hormone, serum uIU/mL Jun 21, vaginal Pap smear PAP SMEAR Done null 2000 results
--- OUTSIDE RECORDS SUMMARY | 2018-04-08 07:51 | XMS REPORT | Continuity of Care Document ---
:1945 Author Organization [facility] Care Team Providers Name Role Phone MD Zamora Luis Unavailable Unavailable Insurance Providers Payer name Policy type / Policy ID Covered democrat ID Policy Lu [place]age type [place] [employer] AET[employer] - [place]EL CHEMICAL (MEDICARE SUPPLEMENT) [place] [employer] Encounters Encounter Performer Location Date Lab Report Angel Zamora MD [facility] May 21, 2013 Problems Problem Effective Dates Problem Status HYPOTHYROIDISM Active HYPERTENSION Active BREAST CANCER Active ROUTINE GENERAL MEDICAL EXAM@HEALTH CARE FACL January 06, 2013 Inactive ONYCHOMYCOSIS, TOENAILS January 06, 2013 Active ALLERGIC RHINITIS May 21, 2013 Active 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
--- OUTSIDE RECORDS SUMMARY | 2018-04-08 07:51 | XMS REPORT | Continuity of Care Document ---
:1945 Author Organization [facility] Care Team Providers Name Role Phone [...] [facility] Apr 01, 2014 Problems Problem Effective Dates [...] TIMES A DAY EFFEXOR XR 75 MG [id number] 1 tablet daily January 06, 2013 Active [...] 2012January 06, platelet count PLATELETS 399 K/CMM [phone] /mm3 Apr 01, urea nitrogen, blood BUN [...]
--- OUTSIDE RECORDS SUMMARY | 2018-04-08 07:52 | XMS REPORT | Continuity of Care Document ---
:1945 Author Organization [facility] Care Team Providers Name Role Phone MD Sera, Angel Unavailable Unavailable Insurance Providers Payer name Policy type / Policy ID Covered constitution party ID Policy Lu [place]age type [place] [employer] - [place]EL CHEMICAL (MEDICARE SUPPLEMENT) [place]: [employer] A[employer] - MICHAEL CHEMICAL (MEDICARE SUPPLEMENT) Encounters Encounter Performer Location Date Office Visit Angel Zamora MD [facility] Feb 26, 2015 Problems Problem Effective Dates Problem Status HYPOTHYROIDISM [...] 2014 Active DYSTONIA Apr 01, 2014 Active PHARYNGITIS, ACUTE December 22, 2014 Active PREVENTIVE HEALTH CARE Feb 26, 2015 Active Procedures Date Description Comments December 26, 2011 mammogram Completed Oct 16, 2005 bone density Done December 26, 2011 mammogram Done Jun 21, 2001 vaginal Pap smear results Done January 06, 2013 smoking status never smoker Feb 11, 2014 smoking status Never smoker Apr 01, 2014 smoking status Never smoker Jul 10, 2014 smoking status Never smoker December 22, 2014 smoking status Never smoker Feb 26, 2015 smoking status Never smoker Medications Medication Instructions [...] TIMES A DAY EFFEXOR XR 75 MG [id number] 1 tablet daily January 06, 2013 Active [...] TABS one daily Apr 01, 2014 Active AZITHROMYCIN 250 MG TABS 2 tabs today and one tab December 22, 2014 Inactive daily there after. MECLIZINE HCL 25 MG TABS 1 tablet twice a day PRN for Apr 24, 2014 Inactive Dizziness Immunizations Vaccine Date Status dT (Diphtheria and Tetanus) booster given Jan 28, 2009 completed influenza immunization (Flu Vax) has been administered Jun 16, 2008 completed pneumococcal immunization administered Feb 20, 2012 completed influenza immunization (Flu Vax) has been administered May 21, 2013 completed influenza immunization (Flu Vax) has been administered Jul 10, 2014 completed Vital Signs Date Description Test Result [...] - 8462-4 BP DIASTOLIC 90 mm Hg Feb 11, 2014 weight E&M - 3141-9 WEIGHT 145 lb Feb 11, 2014 temperature E&M TEMPERATURE 96.6 deg f Feb 11, 2014 pulse rate E&M - 8867-4 PULSE RATE 74 /min Feb 11, 2014 blood pressure, systolic - 8480-6 BP SYSTOLIC 130 mm Hg Feb 11, 2014 blood pressure, diastolic - 8462-4 BP DIASTOLIC 90 mm Hg Apr 01, 2014 weight E&M - 3141-9 WEIGHT 140 lb Apr 01, 2014 temperature E&M TEMPERATURE 97.9 deg f Apr 01, 2014 pulse rate E&M - 8867-4 PULSE RATE 86 /min Apr 01, 2014 blood pressure, systolic - 8480-6 BP SYSTOLIC 124 mm Hg Apr 01, 2014 blood pressure, diastolic - 8462-4 BP DIASTOLIC 86 mm Hg Jul 10, 2014 weight E&M - 3141-9 WEIGHT 145 lb Jul 10, 2014 height E&M - 8302-2 HEIGHT 62 in Jul 10, 2014 blood pressure, systolic - 8480-6 BP SYSTOLIC 130 mm Hg Jul 10, 2014 temperature E&M TEMPERATURE 97.9 deg f Jul 10, 2014 pulse rate E&M - 8867-4 PULSE RATE 82 /min Jul 10, 2014 blood pressure, diastolic - 8462-4 BP DIASTOLIC 86 mm Hg December 22, 2014 weight E&M - 3141-9 WEIGHT 148 lb December 22, 2014 temperature E&M TEMPERATURE 98.4 deg f December 22, 2014 pulse rate E&M - 8867-4 PULSE RATE 94 /min December 22, 2014 blood pressure, systolic - 8480-6 BP SYSTOLIC 130 mm Hg December 22, 2014 blood pressure, diastolic - 8462-4 BP DIASTOLIC 84 mm Hg Feb 26, 2015 weight E&M - 3141-9 WEIGHT 148 lb Feb 26, 2015 height E&M - 8302-2 HEIGHT 62 in Feb 26, 2015 temperature E&M TEMPERATURE 97.7 deg f Feb 26, 2015 pulse rate E&M - 8867-4 PULSE RATE 84 /min Feb 26, 2015 blood pressure, systolic - 8480-6 BP SYSTOLIC 135 mm Hg Feb 26, 2015 blood pressure, diastolic - 8462-4 BP DIASTOLIC 83 mm Hg Results Date Description Test Name Value Reference Interpretation Status January 06, hemoglobin, blood HGB 13.4 g/dL 12.0-16.0 2012January 06, hematocrit, blood HCT 38.3 % 36.0-48.0 2012January 06, platelet count PLATELETS 399 K/CMM [phone] /mm3 Feb 26, hemoglobin, blood HGB 12.0 g/dL 12.0-16.0 2014Feb 26, hematocrit, blood HCT 35.1 % 36.0-48.0 Low 2014Feb 26, platelet count PLATELETS 438 K/CMM 271-106 8770 /mm3 Apr 01, urea nitrogen, blood BUN 8 mg/dL 7-2013Apr 01, creatinine, serum CREATININE 0.6 mg/dL 0.5-1.4 [...] mg/dL -2012January 06, urea BUN/CREAT 18 null 6-25 2012 [...] 01, urea nitrogen, blood BUN 8 mg/dL 7-2013Apr 01, creatinine, serum CREATININE 0.6 mg/dL 0.5-1.4 2013Apr 01, sodium, serum SODIUM 125 MEQ/L 135-145 Low 2013 mmol/L Apr 01, potassium, serum POTASSIUM 3.9 MEQ/L 3.5-5.1 2013 mmol/L Apr 01, calcium, serum CALCIUM 9.3 mg/dL 8.5-10.5 2013Feb 26, cholesterol, serum CHOLESTEROL 210 mg/dl <=199 High 2014Feb 26, triglyceride, serum, TRIGLYCERIDE 223 mg/dl <=149 High 2014 fasting Feb 26, HDL cholesterol, HDL 60 mg/dl >=61 Low 2014Feb 26, LDL cholesterol, LDL 105 mg/dl <=99 High 2014Feb 26, sodium, serum SODIUM 131 MEQ/L 135-145 Low 2014 mmol/L Feb 26, potassium, serum POTASSIUM 3.7 MEQ/L 3.5-5.1 2014 mmol/L Feb 26, creatinine, serum CREATININE 0.8 mg/dL 0.5-1.4 2014Feb 26, urea nitrogen, blood BUN 14 mg/dL -2014Feb 26, urea BUN/CREAT 18 null 6-25 2014 nitrogen/creatinine ratio, serum Feb 26, albumin, serum ALBUMIN 4.2 g/dL 3.5-5.0 2014Feb 26, calcium, serum CALCIUM 9.5 mg/dL 8.5-10.5 2014Feb 26, alanine SGPT (ALT) 18 U/L 0-65 2014 aminotransferase (SGPT), serum Feb 26, aspartate SGOT (AST) 11 U/L 0-37 2014 aminotransferase (SGOT), serum Feb 26, alkaline ALK PHOS 96 U/L 39-136 2014 phosphatase, serum Feb 26, thyroid stimulating TSH 1.300 0.360-3.740 2015 hormone, serum uIU/mL Jun 21, vaginal Pap smear PAP SMEAR Done null 2000 results
--- OUTSIDE RECORDS SUMMARY | 2018-04-08 07:52 | XMS REPORT | Summary of Care ---
:1945 Author Organization [facility] Primary Care [facility] Address [address] [place] [address]- Encounter HQ Mindyntr_cayden(FIN) [phone] Date(s): 07/09/17 - 07/10/17 [facility] [address] [place] [phone] Vital Signs No data available for this section Problem List Condition Effective Dates Status Health Status Informant Acute pharyngitis1 12/22/14 Active Allergic rhinitis(Confirmed) Resolved Blood transfusion(Confirmed) Resolved Breast cancer(Confirmed) Resolved Dizziness(Confirmed) Resolved Dystonia2 04/01/14 Active GERD (gastroesophageal reflux Resolved disease)(Confirmed) IBS (irritable bowel Resolved syndrome)(Confirmed) Night sweats(Confirmed) Resolved Screening - health check3 02/26/15 Active Thyroid disease(Confirmed) Resolved 1Data migrated from [employer] on 02/24/15.2Data migrated from [employer] on 02/24/15.3Data migrated from [employer] on 03/24/15. Allergies, Adverse Reactions, Alerts Substance Reaction Severity Status NKDA1, 2 Active 1Data migrated from [employer] on 10/22/15. Originally documented as NKA.2Data migrated from [employer] on 10/12/15. Originally documented as NKA. Medications FLUoxetine 10 mg oral capsule See Instructions, # 90 unknown unit, Refill(s) 2, TAKE ONE CAPSULE BY MOUTH EVERY DAY, Pharmacy: [facility]/pharmacy #[id number] Start Date: 07/09/17 Status: Ordered Results No data available for this section Immunizations Given and Recorded Vaccine Date Status Refusal Reason Hx influenza vaccine-unspecified1 07/10/14 Given pneumococcal 23-valent vaccine2 02/20/12 Given zoster vaccine live3 06/21/09 Given tetanus-diphtheria toxoids4 01/28/09 Given 1Result Comment: fluzone (quadrivalent) no preservative (>3 yrs.) [[id number]]. Migrated from OBS ; Data migrated from [employer] on 09/28/2015.2Result Comment: pneumovax. Migrated from OBS ; Data migrated from [employer] on .3Result Comment: zostavax. Migrated from OBS ; Data migrated from [employer] on 09/28/2015.4Result Comment: historical. Migrated from OBS ; Data migrated from [employer] on 09/28/2015. Procedures Procedure Date Related Diagnosis Body Site Carpal tunnel release Cholecystectomy Excision of skin carcinoma1 Hip replacement2 Hysterectomy Laminectomy3 1Nose-- [id number] Social History Social History Type Response Substance Abuse Use: None. Employment/School Status: Retired.1 Alcohol Current Smoking Status Never smoker; Exposure to Tobacco Smoke None; Cigarette Smoking Last 365 Days No; Reg Smoking Cessation Counseling No 1Surrogate Decision Maker: Albert Martinez Assessment and Plan No data available for this section
--- OUTSIDE RECORDS SUMMARY | 2018-04-08 07:52 | XMS REPORT | Summary of Care ---
:1945 Author Organization [facility] Primary Care [facility] Address [address] [place] [address]- Encounter HQ Jaqueline_cayden(FIN) [phone] Date(s): 10/02/17 - 10/03/17 [facility] Care [facility] [address] [place] [address] [phone] Vital Signs No data available for this [...] on 10/12/15. Originally documented as NKA. Medications levothyroxine 50 mcg (0.05 mg) oral tablet See Instructions, # 90 tab, Refill(s) 2, TAKE 1 TABLET BY MOUTH EVERY DAY, Pharmacy: [facility]/pharmacy #[id number] Start Date: 10/02/17 Status: Orderedlosartan 50 mg oral tablet See Instructions, # 90 tab, TAKE 1 TABLET BY MOUTH EVERY DAY, Pharmacy: [facility]/ pharmacy #[id number] Start Date: 10/05/17 Status: Orderedlosartan 50 mg oral tablet See Instructions, # 90 tab, TAKE 1 TABLET BY MOUTH EVERY DAY, Pharmacy: [facility]/ pharmacy #[id number] Start Date: 10/02/17 Stop Date: 10/05/17 Status: CompletedPROzac 20 mg oral capsule 20 mg=1 cap, PO, Daily, # 90 cap, 1 Refill(s), Pharmacy: [facility]/pharmacy #[id number] Start Date: 12/27/17 Stop Date: 06/25/18 Status: Ordered Results No data available for this section Immunizations Given and Recorded Vaccine Date Status Refusal Reason Hx influenza vaccine-unspecified1 07/10/14 Given pneumococcal 23-valent vaccine2 02/20/12 Given zoster vaccine live3 06/21/09 Given tetanus-diphtheria toxoids4 01/28/09 Given 1Result Comment: fluzone (quadrivalent) no preservative (>3 yrs.) [[id number]]. Migrated from OBS ; Data migrated from [employer] on 09/28/2015.2Result Comment: pneumovax. Migrated from OBS ; Data migrated from [employer] on .3Result Comment: zostavax. Migrated from OBS ; Data migrated from [facility] [employer] [facility] [employer] on 09/28/2015.4Result Comment: historical. Migrated from OBS ; Data migrated from [facility] [employer] [facility] [employer] on 09/28/2015. Procedures Procedure Date Related Diagnosis Body Site Status Carpal tunnel release Completed Cholecystectomy Completed Excision of skin carcinoma1 Completed Hip replacement2 Completed Hysterectomy Completed Laminectomy3 Completed 1Nose-- 11/201519535ZI [id number] Social History Social History Type Response Substance Abuse Use: None. Employment/School Status: Retired.1 Alcohol Current Smoking Status Never smoker; Exposure to Tobacco Smoke None; Cigarette Smoking Last 365 Days No; Reg Smoking Cessation Counseling No entered on: 06/14/17 1Surrogate Decision Maker: Albert Martinez Assessment and Plan No data available for this section
--- OUTSIDE RECORDS SUMMARY | 2018-04-08 07:52 | XMS REPORT ---
:1945 Author Organization [employer] Care Team Providers Name Role Phone Vince Arnold Provider Role Unavailable Allergies, Adverse Reactions, Alerts Substance Reaction Event Type N.K.D.A. Info Not Available Non Drug Allergy Problems Problem Type Condition Code Onset Dates Condition Status Assessment Chronic laryngitis (LPRD) J37.0 Active Problem Chronic laryngitis (LPRD) J37.0 Active Medications Medication Code Code Instructions Start End Status Dosage System Date Date Fluoxetine ND 0 Active not defined Losartan Potassium [facility] [address]-95 Active not defined ClearLax [facility] [address]-17 Active not defined Vagifem [facility] [address]-57 Active not defined Sheila ND 0 Active not defined Meclizine HCl [facility] [address]-19 Active not defined Nexium [facility] 50352289099 40 MG Orally Aug 29, Active 1 capsule Once a day 2017 Dexilant [facility] 44943683569 60 MG Orally Active 1 capsule Once a day Valacyclovir HCl [facility] [address]-84 Active not defined Restasis [facility] [address]-83 Active not defined Aspir-81 [facility] [address]-82 Active not defined Zegerid OTC [facility] [address]-93 Active not defined Hydrochlorothiazide [facility] [address]-47 Active not defined Levothyroxine Sodium [facility] [address]-32 Active not defined Calcium Citrate + D [facility] [address]-31 Active not defined Results No Known Results Summary Purpose [facility] Submission
--- OUTSIDE RECORDS SUMMARY | 2018-04-08 07:52 | XMS REPORT | Continuity of Care Document ---
:1945 Author Organization [facility] Care Team Providers Name Role Phone MD Sera, Angel Unavailable Unavailable Insurance Providers Payer name Policy type / Policy ID Covered republican ID Policy Lu Coverage type [place] [employer] - [place] [employer] (MEDICARE SUPPLEMENT) [place] [employer] - [place] [employer] (MEDICARE SUPPLEMENT) Encounters Encounter Performer Location Date Office Visit Angel Zamora MD [facility] Jul 10, 2014 Problems Problem Effective Dates Problem Status [...] Jul 10, 2014 smoking status Never smoker Medications Medication [...] TIMES A DAY EFFEXOR XR 75 MG [id number] 1 tablet daily January 06, 2013 Active [...] TABS one daily Apr 01, 2014 Active MECLIZINE HCL 25 MG TABS 1 tablet twice a day PRN for Apr 24, 2014 Active Dizziness Immunizations Vaccine Date Status dT (Diphtheria [...] - 8462-4 BP DIASTOLIC 86 mm Hg Results Date Description Test Name Value Reference Interpretation Status January 06, hemoglobin, blood HGB 13.4 g/dL 12.0-16.0 2012January 06, hematocrit, blood HCT 38.3 % 36.0-48.0 2012January 06, platelet count PLATELETS 399 K/CMM 143-540 6023 /mm3 Apr 01, urea nitrogen, blood BUN [...] 01, urea nitrogen, blood BUN 8 mg/dL 03-10Apr 01, creatinine, serum CREATININE 0.6 mg/dL 0.5-1.4 2013Apr 01, sodium, serum SODIUM 125 MEQ/L 135-145 Low 2013 mmol/L Apr 01, potassium, serum POTASSIUM 3.9 MEQ/L 3.5-5.1 2013 mmol/L Apr 01, calcium, serum CALCIUM 9.3 mg/dL 8.5-10.5 2013Jun 21, vaginal Pap smear PAP SMEAR Done null 2000 results
--- OUTSIDE RECORDS SUMMARY | 2018-04-08 07:52 | XMS REPORT | Summary of Care ---
:1945 Author Organization [facility] Primary Care [facility] Address [address] [place] [address]- Encounter HQ Encntr_alisameer(FIN) [id number] Date(s): 07/10/17 - 07/11/17 [facility] Care [facility] [address] [place] [phone] Vital Signs No data available for this [...] on 10/12/15. Originally documented as NKA. Medications PROzac 20 mg oral capsule 20 mg=1 cap, PO, Daily, # 90 cap, 1 Refill(s), Pharmacy: [facility]/pharmacy #[id number] Start Date: 07/10/17 Status: Ordered Results No data available for this section Immunizations Given and Recorded Vaccine Date Status Refusal Reason Hx influenza vaccine-unspecified1 07/10/14 Given pneumococcal 23-valent vaccine2 02/20/12 Given zoster vaccine live3 06/21/09 Given tetanus-diphtheria toxoids4 01/28/09 Given 1Result Comment: fluzone (quadrivalent) no preservative (>3 yrs.) [[id number]]. Migrated from OBS ; Data migrated from [employer] on 09/28/2015.2Result Comment: pneumovax. Migrated from OBS ; Data migrated from [employer] on .3Result Comment: zostavax. Migrated from OBS ; Data migrated from [employer] on 09/28/2015.4Result Comment: historical. Migrated from OBS ; Data migrated from [employer] on 09/28/2015. Procedures Procedure Date Related Diagnosis Body Site Carpal tunnel release Cholecystectomy Excision of skin carcinoma1 Hip replacement2 Hysterectomy Laminectomy3 1Nose-- 11/201554647ZR [id number] Social History Social History Type Response Substance Abuse Use: None. Employment/School Status: Retired.1 Alcohol Current Smoking Status Never smoker; Exposure to Tobacco Smoke None; Cigarette Smoking Last 365 Days No; Reg Smoking Cessation Counseling No 1Surrogate Decision Maker: Albert Martinez Assessment and Plan No data available for this section
--- OUTSIDE RECORDS SUMMARY | 2018-04-08 07:52 | XMS REPORT | Continuity of Care Document ---
:[address] [facility] Care Team Providers Name Role Phone MD Sera, Angel Unavailable Unavailable Insurance Providers Payer name Policy type / Policy ID Covered constitution party ID Policy Lu Coverage type [place] [employer] - [place] [employer] (MEDICARE SUPPLEMENT) [place] [employer] - [place] [employer] (MEDICARE SUPPLEMENT) Encounters Encounter Performer Location Date Office Visit Angel Zamora MD [facility] Feb 26, 2015 Problems Problem Effective Dates [...] TIMES A DAY EFFEXOR XR 75 MG [id number] 1 tablet daily January 06, 2013 Active [...] 2012January 06, platelet count PLATELETS 399 K/CMM 272-501 9288 /mm3 Apr 01, urea nitrogen, blood BUN [...] mg/dL -2012January 06, urea BUN/CREAT 18 null -2012 nitrogen/creatinine ratio, serum January 06, albumin, serum [...]
--- OUTSIDE RECORDS SUMMARY | 2018-04-08 07:52 | XMS REPORT | Continuity of Care Document ---
:1945 Author Organization [facility] Care Team Providers Name Role Phone MD Sera, Angel Unavailable Unavailable Insurance Providers Payer name Policy type / Policy ID Covered libertarian ID Policy Lu [place]age type [place] [employer] - [place] [employer] (MEDICARE SUPPLEMENT) [place] [employer] - [place] [employer] (MEDICARE SUPPLEMENT) Encounters Encounter Performer Location Date Office Visit Angel Zamora MD [facility] December 22, 2014 Problems Problem Effective Dates Problem Status [...] Active PHARYNGITIS, ACUTE December 22, 2014 Active Procedures Date Description Comments December [...] December 22, 2014 smoking status Never smoker Medications Medication [...] TIMES A DAY EFFEXOR XR 75 MG [id number] 1 tablet daily January 06, 2013 Active [...] PRN for Apr 24, 2014 Active Dizziness AZITHROMYCIN 250 MG TABS 2 tabs today and one tab December 22, 2014 Active daily there after. Immunizations Vaccine Date Status dT (Diphtheria and [...] - 8462-4 BP DIASTOLIC 84 mm Hg Results Date Description Test Name Value Reference Interpretation Status January 06, hemoglobin, blood HGB 13.4 g/dL 12.0-16.0 2012January 06, hematocrit, blood HCT 38.3 % 36.0-48.0 2012January 06, platelet count PLATELETS 399 K/CMM 606-760 4173 /mm3 Apr 01, urea nitrogen, blood BUN [...]
--- OUTSIDE RECORDS SUMMARY | 2018-04-08 07:52 | XMS REPORT | Summary of Care ---
:1945 Author Organization [facility] Primary Care [facility] Address [address] [place] [address]- Encounter HQ Encntr_alias(FIN) [id number] Date(s): 08/22/17 - 08/23/17 [facility] Care [facility] [address] [place] [address] [phone] Vital Signs No data available for this [...] on 10/12/15. Originally documented as NKA. Medications No data available for this section Results No data available for this section Immunizations Given and Recorded Vaccine Date Status Refusal Reason Hx influenza vaccine-unspecified1 07/10/14 Given pneumococcal 23-valent vaccine2 02/20/12 Given zoster vaccine live3 06/21/09 Given tetanus-diphtheria toxoids4 01/28/09 Given 1Result Comment: fluzone (quadrivalent) no preservative (>3 yrs.) [[id number]]. Migrated from OBS ; Data migrated from [employer] on 09/28/2015.2Result Comment: pneumovax. Migrated from OBS ; Data migrated from [employer] on .3Result Comment: zostavax. Migrated from OBS ; Data migrated from [employer] on 09/28/2015.4Result Comment: historical. Migrated from OBS ; Data migrated from [employer] on 09/28/2015. Procedures Procedure Date Related Diagnosis Body Site Carpal tunnel release Cholecystectomy Excision of skin carcinoma1 Hip replacement2 Hysterectomy Laminectomy3 1Nose-- 11/201585702YG [id number] Social History Social History Type Response Substance Abuse Use: None. Employment/School Status: Retired.1 Alcohol Current Smoking Status Never smoker; Exposure to Tobacco Smoke None; Cigarette Smoking Last 365 Days No; Reg Smoking Cessation Counseling No 1Surrogate Decision Maker: Albert Martinez Assessment and Plan No data available for this section
--- OUTSIDE RECORDS SUMMARY | 2018-04-08 07:52 | XMS REPORT | Summary of Care ---
:1945 Author Organization [facility] Primary Care [facility] Address [address] [place] [address]- Encounter HQ Jaqueline_cayden(FIN) [id number] Date(s): 09/28/17 - 09/29/17 [facility] Care [facility] [address] [place] [phone] Vital Signs No data available for this [...] on 10/12/15. Originally documented as NKA. Medications hydrochlorothiazide 25 mg oral tablet 25 mg=1 tab, PO, Daily, # 90 tab, 3 Refill(s), Pharmacy: [facility]/pharmacy #[id number] Start Date: 10/01/17 Status: Ordered Results No data available for this section Immunizations Given and Recorded Vaccine Date Status Refusal Reason Hx influenza vaccine-unspecified1 07/10/14 Given pneumococcal 23-valent vaccine2 02/20/12 Given zoster vaccine live3 06/21/09 Given tetanus-diphtheria toxoids4 01/28/09 Given 1Result Comment: fluzone (quadrivalent) no preservative (>3 yrs.) [[id number]]. Migrated from OBS ; Data migrated from [employer] on 09/28/2015.2Result Comment: pneumovax. Migrated from OBS ; Data migrated from [employer] on .3Result Comment: zostavax. Migrated from OBS ; Data migrated from [employer] on 09/28/2015.4Result Comment: historical. Migrated from OBS ; Data migrated from [employer] on 09/28/2015. Procedures Procedure Date Related Diagnosis Body Site Status Carpal tunnel release Completed Cholecystectomy Completed Excision of skin carcinoma1 Completed Hip replacement2 Completed Hysterectomy Completed Laminectomy3 Completed 1Nose-- 11/201547566XK [id number] Social History Social History Type Response Substance Abuse Use: None. Employment/School Status: Retired.1 Alcohol Current Smoking Status Never smoker; Exposure to Tobacco Smoke None; Cigarette Smoking Last 365 Days No; Reg Smoking Cessation Counseling No entered on: 06/14/17 1Surrogate Decision Maker: Albert Martinez Assessment and Plan No data available for this section
--- OUTSIDE RECORDS SUMMARY | 2018-04-08 07:53 | XMS REPORT ---
:1945 Author Organization [employer] Care Team Providers Name Role Phone Vince Arnold Provider Role Unavailable Allergies, Adverse Reactions, Alerts Substance Reaction Event Type N.K.D.A. Info Not Available Non Drug Allergy Problems Problem Type Condition Code Onset Dates Condition Status Assessment Cough R05 Active Assessment Edema of larynx J38.4 Active Problem Chronic laryngitis (LPRD) J37.0 Active Assessment Chronic laryngitis (LPRD) J37.0 Active Medications Medication Code Code Instructions Start End Status Dosage System Date Date Fluoxetine ND 0 Active not defined Levothyroxine Sodium [facility] [address]-52 Active not defined Prevacid [facility] [address]-96 Active not defined Valacyclovir HCl [facility] [address]-21 Active not defined Dexilant [facility] 41976969951 60 MG Orally Active 1 capsule Once a day ClearLax [facility] [address]-33 Active not defined Hydrochlorothiazide [facility] [address]-52 Active not defined Zegerid OTC [facility] [address]-78 Active not defined Calcium Citrate + D [facility] [address]-45 Active not defined Restasis [facility] [address]-34 Active not defined Vagifem [facility] [address]-19 Active not defined Symbicort [facility] 90585333318 160-4.5 Apr 04, Active 2 puffs MCG/ACT 2018 Inhalation Twice a day Prednisone [facility] 62609529148 10mg Tablet Apr 04, Active 3 daily x (3wk-30,20,10) Orally 2017 7, 2 daily x 7, 1 daily x 7 Aspir-81 [facility] [address]-77 Active not defined Sheila ND 0 Active not defined Nexium [facility] 90056928198 40 MG Orally Aug 29, Active 1 capsule Once a [place] 2018 [place] [address]-54 Active not defined Meclizine HCl [facility] [address]-11 Active not defined Results No Known Results Summary Purpose [employer] Submission
[2018-04-08] MEDS ORDERED: DUOVISC 1 KIT OPTH ONE (08:05)
[2018-04-08] MEDS ORDERED: NS 0.9% VIAL 10 ML ONE (08:05)
[2018-04-08] MEDS ORDERED: EPINEPHRINE/PF 1 MG/ML AMP ONE (08:05)
[2018-04-08] MEDS ORDERED: BSS PLUS 500 ML BOTTLE IRR ONE (08:06)
[2018-04-08] MEDS ORDERED: NA CHLORIDE 0.9% 500 ML ONE (08:21)
[2018-04-08] MEDS ORDERED: TETRACAINE HCL 0.5% 2ML OPTH ONE (08:23)
[2018-04-08] MEDS ORDERED: BUPIVACAINE 0.25% PF 10 ML VIAL ONE (08:23)
[2018-04-08] MEDS ORDERED: CYCLOPENTOLATE 1% OPTH 2 ML ONE (08:23)
[2018-04-08] MEDS ORDERED: PHENYLEPHRINE 10% OPTH 5ML ONE (08:25)
[2018-04-08] MEDS ORDERED: LIDOCAINE 2% INJ, MPF 2 ML 0 ML ONE (08:25)
[2018-04-08] MEDS ORDERED: LIDOCAINE HCL/PF 3.5% OPTH GEL ONE (08:36)
[2018-04-08] MEDS ORDERED: CYCLOPENTOLATE 1% OPTH 2 ML OPTH ONE ×2 (08:38→08:44)
[2018-04-08] MEDS ORDERED: PHENYLEPHRINE 10% OPTH 5ML OPTH ONE (08:38)
[2018-04-08] MEDS ORDERED: BSS OPTHALMIC SOL 15 ML BOT OPTH ONE (09:02)
[2018-04-08] MEDS ORDERED: LIDOCAINE 1% MPF 2 ML AMPULE ONE (09:02)
[2018-04-08] MEDS ORDERED: MOXIFLOXACIN HCL 10 DROPS/ML **OR USE OPTH ONE (09:02)
[2018-04-08] MEDS ORDERED: MIDAZOLAM HCL 2 MG/2 ML INJ ONE (09:15)
[2018-04-08] MEDS ORDERED: FENTANYL CITR 100 MCG/2 ML ONE (09:35)
--- NOTE | 2018-04-08 10:20 | P.BOP ---
Preoperative diagnosis: Nuclear sclerotic cataract and Fuch's dystrophy OD Postoperative diagnosis: Same Primary procedure: Phacoemulsification with IOL OD Estimated blood loss: None Anesthesia: Local (Topical with anesthesia for cataract surgery) Complications: None Implants: ZCB00 +22.5 Transferred to: Other (Day surgery) Condition: Good
--- NOTE | 2018-04-08 21:19 | OP ---
Date of Procedure: 04/08/2018 Surgeon: Tamara Varela MD Anesthesiologist: 1. Chelita Rivers CRNA. 2. Jens Keyes M.D. Preoperative Diagnoses: Nuclear sclerotic cataract, right eye; Fuchs' dystrophy. Operation Performed: Phacoemulsification with intraocular lens implant, right eye. Anesthesia: Per cataract surgery. Complications: None. Description Of Procedure: In the operating room the patient was prepped and draped in the usual sterile fashion for ophthalmic surgery. A lid speculum was placed in the right eye. Two paracentesis sites were made superiorly and inferiorly in the limbal cornea. Viscoat was placed in the anterior chamber and a crescent blade was used to make a corneal groove and tunnel, and a keratome was used to enter the anterior chamber. Provisc was placed in the anterior chamber and a 360 degree capsulotomy was performed with a cystitome. The lens was hydrodissected with BSS and rotated freely. The lens was removed with a stop and chop technique. 2.66 phaco CDE was used to remove the lens. Residual cortex was removed with the irrigation and aspiration. Provisc was placed in the capsular bag. A ZCB00 +22.5 lens was placed in the capsular bag without complications. Irrigation and aspiration was used to remove residual viscoelastic. The paracentesis sites were hydrated with BSS. The wound and paracentesis sites were inspected and found to be watertight. Vigamox 0.07 cc was placed intracamerally at the end of the procedure. The eye was irrigated with balanced salt solution. The eye was patched with a soft cotton patch and Montoya metal shield. The patient was returned to day surgery in good condition. Comments: BSS Plus was used. Akten was placed in the eye in Day Surgery and irrigated out of the eye with BSS in the OR. Preservative free 1% lidocaine was placed in the anterior chamber prior to Viscoat. Discharge Instructions: Ms. Martinez is discharged to home in good condition and is to follow up with Dr. Varela in the morning. SEDA/JUVENTINO Voice ID: [id number] Report ID: [id number] JOSE
== END 2018-04-08 10:46 | disposition home or self-care (01) ==
LOC: OR 07:45
PROVIDERS: ATTEND Ophthalmology Retina Specialist
PROC: 08RJ3JZ Replacement of Right Lens with Synthetic Substitute, Percutaneous Approach (ICD-10-PCS; principal; 2018-04-08 09:30)
DX: H25.11 Age-related nuclear cataract, right eye (principal); H18.51 Endothelial corneal dystrophy; I10 Essential (primary) hypertension; K21.9 Gastro-esophageal reflux disease without esophagitis; Z85.3 Personal history of malignant neoplasm of breast; Z79.82 Long term (current) use of aspirin
CPT/HCPCS: 36415; 66984; 84132; J0171; J2001; J2250; J3010; J3490

== ENCOUNTER 2018-08-05 08:49 | Day surgery (SDC) | payer OTHER ==
--- OUTSIDE RECORDS SUMMARY | 2018-08-05 08:57 | XMS REPORT | Clinical Summary ---
:1945 Author Organization [facility] Address [address] [place] [address] Care Team Providers Name Role Phone Angel Zamora MD Primary Care Provider Allergies Active Allergy Reactions Severity Noted Date Comments No Known Drug Allergies 12/28/2015 Medications Medication Sig Dispensed Refills Start End Status Date Date losartan (COZAAR) 50 Take 50 mg by 0 Active MG tablet mouth daily. hydrochlorothiazide Take 25 mg by 0 Active (HYDRODIURIL) 25 MG mouth daily. tablet omeprazole-sodium Take 1 capsule 0 Active bicarbonate (ZEGERID) by mouth daily 40-1.1 mg-gram per before capsule breakfast. LEVOTHYROXINE SODIUM Take 50 mcg by 0 Active (LEVOTHYROXINE ORAL) mouth daily. cycloSPORINE Restasis 0.05 % 0 Active (RESTASIS) 0.05 % eye drops in a ophthalmic emulsion dropperette meclizine (ANTIVERT) TAKE 1 TABLET BY 0 Active 25 mg tablet MOUTH TWICE A DAY NEEDED FOR DIZZINESS triamcinolone triamcinolone 0 Active (KENALOG) 0.1 % paste acetonide 0.1 % dental paste valACYclovir (VALTREX) valacyclovir 1 0 Active 1000 MG tablet gram tablet [id number] Apply as 1 Tube 0 03/10/20 Active ater (MEDERMA) directed 16 gelIndications: Carpal tunnel syndrome, left, Aftercare following surgery fexofenadine (SHANNA) Take 180 mg by 0 Active 180 MG tablet mouth as needed. aspirin (ECOTRIN) 81 Take 81 mg by 0 Active MG enteric coated mouth daily. tablet CALCIUM Take 1 tablet by 0 Active CITRATE-VITAMIN D2 mouth 2 (two) ORAL times a day. POLYETHYLENE GLYCOL Take by mouth. 0 Active 3350 (MIRALAX ORAL) lansoprazole Take 15 mg by 0 Active (PREVACID) 15 MG mouth daily. capsule dexlansoprazole Take 60 mg by 0 Active (DEXILANT) 60 mg mouth daily. capsule primidone (MYSOLINE) Start 1/2 pill 150 tablet 11 02/05/20 Active 50 MG tablet HS for a week, 18 then increase as instructed up to 5 pills HS DULoxetine (CYMBALTA) TAKE ONE CAPSULE 30 capsule 3 02/12/20 Active 60 MG capsule BY MOUTH DAILY 18 estradiol (VAGIFEM) 10 INSERT ONE TAB 24 tablet 3 04/25/20 Active mcg vaginal tablet VAGINALLY 2 18 TIMES A WEEK DIRECTED venlafaxine (EFFEXOR) Take 75 mg by 0 Discontinued 75 MG tablet mouth every 018 evening. propranolol LA propranolol ER 0 Discontinued (INDERAL LA) 60 MG 24 60 mg capsule,24 018 hr capsule hr,extended release scopolamine APPLY TO SKIN 0 Discontinued (TRANSDERM-SCOP) 1.5 DIRECTED 018 mg (1 mg over 3 days) amoxicillin (AMOXIL) TAKE 4 CAPSULES 0 Discontinued 500 MG capsule BY MOUTH 1 HOUR 018 PRIOR TO APPOINTMENT anastrozole (ARIMIDEX) anastrozole 1 mg 0 Discontinued 1 mg chemo tablet tablet 018 azithromycin (AZASITE) 1 DROP IN BOTH 0 Discontinued 1 % ophthalmic EYES DAILY FOR1 018 solution WEEK OUT OF EVERY MONTH azithromycin azithromycin 250 0 Discontinued (ZITHROMAX) 250 MG mg tablet 018 tablet chlordiazepoxide-clidi TAKE ONE CAPSULE 0 Discontinued nium (LIBRAX) 5-2.5 mg BY MOUTH TWICE A 018 per capsule DAY ciprofloxacin (CIPRO) ciprofloxacin 0 Discontinued 500 MG tablet 500 mg tablet 018 erythromycin 0.5% APPLY TO EYELIDS 0 Discontinued (ILOTYCIN) ophthalmic AT BEDTIME FOR 1 018 ointment WEEK fluconazole (DIFLUCAN) TAKE 1 TABLET BY 0 Discontinued 150 MG tablet MOUTH NOW 018 gabapentin (NEURONTIN) gabapentin 300 0 10/31/20 Discontinued 300 MG capsule mg capsule 12 018 minocycline minocycline 100 0 02/26/2 Discontinued (MINOCIN,DYNACIN) 100 mg capsule 018 MG capsule tolterodine (DETROL) 1 tolterodine 1 mg 0 Discontinued MG tablet tablet 018 valACYclovir (VALTREX) TAKE 1 TABLET BY 0 Discontinued 500 MG tablet MOUTH EVERY DAY 018 silicone adhesive 1.5 Apply as 1 each 0 03/10/20 Discontinued X 3 " directed 16 018 sheetIndications: Carpal tunnel syndrome, left, Aftercare following surgery VAGIFEM 10 mcg vaginal INSERT 10 MCG 12 tablet 0 06/25/20 Discontinued tablet INTO THE VAGINA 17 018 2 TIMES WEEKLY. VAGIFEM 10 mcg vaginal INSERT ONE TAB 24 tablet 0 10/01/19 Discontinued tablet VAGINALLY 2 18 018 TIMES A WEEK DIRECTED esomeprazole (NexIUM) Take 40 mg by 0 Discontinued 40 MG capsule mouth daily 018 before breakfast. FLUoxetine (PROzac) 40 Take 40 mg by 0 Discontinued MG capsule mouth daily. 018 desvenlafaxine Take 1 tablet 30 tablet 11 10/15/19 Discontinued (PRISTIQ) 50 MG 24 hr (50 mg total) by 18 018 tablet mouth daily. DULoxetine (CYMBALTA) Take 30 mg by 0 Discontinued 30 MG capsule mouth daily. 018 DULoxetine (CYMBALTA) Take 60 mg by 0 Discontinued 60 MG capsule mouth daily. 018 propranolol (INDERAL) 1-2 pill PRN for 90 tablet 11 12/05/19 Discontinued 10 MG tablet tremor up to tid 18 018 VAGIFEM 10 mcg vaginal INSERT ONE TAB 24 tablet 0 12/21/19 Discontinued tablet VAGINALLY 2 18 018 TIMES A WEEK DIRECTED topiramate (TOPAMAX) Start 1 pill HS 120 tablet 11 01/22/20 Discontinued 25 MG tablet for a week, then 18 018 increase as instructed up to 2 pills bid VAGIFEM 10 mcg vaginal INSERT ONE TAB 24 tablet 0 03/18/20 Discontinued tablet VAGINALLY 2 18 018 TIMES A WEEK DIRECTED Active Problems Problem Noted Date Pain of hand 02/29/2016 Carpal tunnel syndrome, left 02/29/2016 Psychosis 12/28/2015 Seizure disorder 12/28/2015 Transient ischemia 12/28/2015 Flushing 09/28/2011 Malignant neoplasm of breast 09/28/2011 Cancer Staging: Clinical stage from 04/24/2010: Stage IA (T1, N0, M0) - Signed by Anu Richards MD on 02/22/2016 Reduced libido 09/28/2011 Encounters Date Type Specialty Care Team Description 04/25/2018 Office Visit Oncology Anu Richards Malignant neoplasm of left female breast, unspecified estrogen receptor status, unspecified site of breast (Primary Dx); MD Maria Isabel Jerez Polly A., MD 04/25/2018 Refill Oncology Kerry South MA 04/23/2018 Hospital Encounter Radiology Anu Richards Malignant neoplasm of MD Meri left female breast, unspecified estrogen receptor status, unspecified site of breast 04/23/2018 Hospital Encounter Radiology Anu Richards Malignant neoplasm sami Jerez MD left female breast, unspecified estrogen receptor status, unspecified site of breast 04/05/2018 Transcribe Orders Access Anu Richards Malignant Jared MD left female breast, unspecified estrogen receptor status, unspecified site of breast (Primary Dx) 03/18/2018 Refill Oncology Anu Richards MD 03/14/2018 Orders Only Oncology Kerry South MA Malignant neoplasm of left female breast, unspecified estrogen receptor status, unspecified site of breast (Primary Dx) 03/11/2018 Telephone Oncology Anu Richards MD 03/01/2018 Telephone Neurology Vanda Hill MD 02/11/2018 Refill Psychiatry Vincent Boogie MD 02/04/2018 Office Visit Neurology Vanda Hill MD Essential tremor (Primary Dx); Depression, unspecified depression type 01/21/2018 Telephone Neurology Vanda Hill MD 01/09/2018 Office Visit Psychiatry Vincent Boogie Dysthytao AHUJA 12/19/2017 Refill Oncology Anu Richards MD 12/04/2017 Office Visit Neurology Vanda Hill MD Essential tremor (Primary Dx); Depression, unspecified depression type 11/02/2017 Abstract Psychiatry Joselin Sheets 11/02/2017 Refill Psychiatry Joselin Sheets 10/15/2017 Office Visit Psychiatry Vincent Boogie, Moderate episode of MD recurrent major depressive disorder 09/28/2017 Refill Oncology Anu Richards MD after 08/04/2017 Family History Medical History Relation Name Comments Kidney disease Mother Cancer Sister Malignant tumor of breast Cancer Sister melanoma Relation Name Status Comments Mother Sister Sister Social History Tobacco Use Types Packs/Day Years Used Date Never Smoker Smokeless Tobacco: Never Used Alcohol Use Drinks/Week oz/Week Comments Yes Occasional Sex Assigned at Date Recorded Not on file Job Start Date Occupation Industry Not on file Not on file Not on file Travel History Travel Start Travel End No recent travel history available. Last Filed Vital Signs Vital Sign Reading Time Taken Blood Pressure 125/83 04/25/2018 1:10 PM CDT Pulse 86 04/25/2018 1:10 PM CDT Temperature 36.7 C (98 F) 04/25/2018 1:10 PM CDT Respiratory Rate - - Oxygen Saturation - - Inhaled Oxygen Concentration - - Weight 68.6 kg (151 lb 3 oz) 04/25/2018 1:10 PM CDT Height 152.4 cm (5') 04/25/2018 1:10 PM CDT Body Mass Index 29.53 04/25/2018 1:10 PM CDT Plan of Treatment Health Maintenance Due Date Last Done Comments COLON CANCER SCREENING 1996 SHINGLES VACCINES (1 of 2) 1996 PNEUMOCOCCAL POLYSACCHARIDE VACCINE 12/18/2011 AGE 65 AND OVER PNEUMOCOCCAL-13 12/18/2011 INFLUENZA VACCINE 03/20/2018 BREAST CANCER SCREENING 04/23/2020 04/23/2018, 04/23/2018, 02/28/2017, Additional history exists Procedures Procedure Name Priority Date/Time Associated Comments Diagnosis US BREAST COMPLETE Routine 04/23/2018 2:19 Malignant neoplasm Results for this BILATERAL PM CDT of left female procedure are in breast, unspecified the results estrogen receptor section. status, unspecified site of breast MAMMO BREAST Routine 04/23/2018 2:15 Malignant neoplasm Results for this DIAGNOSTIC PM CDT of left female procedure are in TOMOSYNTHESIS breast, unspecified the results BILATERAL estrogen receptor section. status, unspecified site of breast after 08/04/2017 Results US Breast Complete Bilateral (04/23/2018 2:19 PM CDT) Narrative Performed At PROCEDURE: MAMMO BREAST DIAGNOSTIC TOMOSYNTHESIS BILATERAL, US BREAST [facility] COMPLETE BILATERAL Bilateral real-time whole breast sonography included all four quadrants and the retroareolar regions under close supervision by the radiologist. Computer aided detection with tomosynthesis was utilized for the interpretation. HISTORY:72-year-old female with a history of left breast malignancy treated with lumpectomy. She presents for annual evaluation of both breasts. COMPARISON: 02/28/2017-01/19/2014. DENSITY: The breast are hetergenously dense, which may obscure small masses. MAMMOGRAM: Bilateral benign-appearing calcifications in a scattered distribution are noted in both breasts. There is a stable postsurgical scar in the left upper-outer quadrant at posterior depth. No new significant mass, asymmetry or architectural distortion in either breast. ULTRASOUND: There is a postsurgical scar in the left upper-outer quadrant. No new suspicious mass, cyst or acoustic abnormality in either breast. IMPRESSION:No mammographic or sonographic evidence of malignancy. RECOMMENDATION: Annual mammography and correlation with physical examination. BI-RADS 2: BENIGN [id number] Performing Organization Address City/State/Zipcode Phone Number [facility] [address] [place] [address] Mammo Breast Diagnostic Tomosynthesis Bilateral (04/23/2018 2:15 PM CDT) Narrative Performed At PROCEDURE: MAMMO BREAST DIAGNOSTIC TOMOSYNTHESIS BILATERAL, US BREAST [facility] COMPLETE BILATERAL Bilateral real-time whole breast sonography included all four quadrants and the retroareolar regions under close supervision by the radiologist. Computer aided detection with tomosynthesis was utilized for the interpretation. HISTORY:72-year-old female with a history of left breast malignancy treated with lumpectomy. She presents for annual evaluation of both breasts. COMPARISON: 02/28/2017-01/19/2014. DENSITY: The breast are hetergenously dense, which may obscure small masses. MAMMOGRAM: Bilateral benign-appearing calcifications in a scattered distribution are noted in both breasts. There is a stable postsurgical scar in the left upper-outer quadrant at posterior depth. No new significant mass, asymmetry or architectural distortion in either breast. ULTRASOUND: There is a postsurgical scar in the left upper-outer quadrant. No new suspicious mass, cyst or acoustic abnormality in either breast. IMPRESSION:No mammographic or sonographic evidence of malignancy. RECOMMENDATION: Annual mammography and correlation with physical examination. BI-RADS 2: BENIGN [id number] Performing Organization Address City/State/Zipcode Phone Number [facility] RODRÍGUE[facility] [address] [place] [address] after 08/04/2017 Insurance Payer Benefit Plan / Group Subscriber ID Type Phone Address MEDICARE MEDICARE PART A AND B xxxxxxxxxx Medicare [place], [place] AETNA AETNA HMO,POS,EPO, MC/EC xxxxxxxxx HMO Advance Directives Patient has advance care planning documents on file. For more information, please contact:Wilfredo Araujo[address] [place] [address]
--- OUTSIDE RECORDS SUMMARY | 2018-08-05 08:57 | XMS REPORT | Clinical Summary ---
:1945 Author Organization [facility] Address [address] [place] [address] Care Team Providers Name Role Phone Angel Zamora MD Primary Care Provider Allergies Active Allergy Reactions Severity Noted Date Comments Adhesive Tape Other (See Comments) 05/03/2018 Pulls skin off Medications Medication Sig Dispensed Refills Start End Date Status Date levothyroxine Take 50 mcg 0 Active (SYNTHROID, LEVOTHROID) by mouth 50 MCG tablet daily. estradiol (VAGIFEM) 10 Place 0 Active mcg tablet vaginally 2 (two) times daily . valACYclovir (VALTREX) Take 500 mg 0 Active 500 MG tablet by mouth daily as needed. polyethylene glycol Take 17 g by 0 Active (GLYCOLAX) 17 gram mouth daily. packet dexlansoprazole 60 mg Take 60 mg by 0 Active capsule mouth daily. FLUoxetine (PROZAC) 20 Take 20 mg by 0 Active MG tablet mouth daily. lansoprazole (PREVACID) Take 15 mg by 0 Active 15 MG capsule mouth daily. losartan (COZAAR) 50 MG Take 50 mg by 0 Active tablet mouth daily. hydroCHLOROthiazide Take 25 mg by 0 Active (HYDRODIURIL) 25 MG mouth every tablet other day. amLODIPine (NORVASC) 5 Take 5 mg by 0 Active MG tablet mouth daily. anastrozole (ARIMIDEX) 1 Take 1 mg by 0 05/03/20 Discontinued mg tablet mouth daily. 18 azithromycin (AZASITE) 1 1 drop 2 0 05/03/20 Discontinued % ophthalmic solution (two) times 18 daily. hydrochlorothiazide Take 25 mg by 0 05/03/20 Discontinued (HYDRODIURIL) 25 MG mouth every 18 tablet other day. Missing or Non-Formulary 0 05/03/20 Discontinued Medication 18 aspirin 81 MG EC tablet Take 81 mg by 0 05/03/20 Discontinued mouth daily. 18 fexofenadine (SHANNA) Take 180 mg 0 05/03/20 Discontinued 180 MG tablet by mouth 18 daily. calcium citrate-vitamin Take 1 tablet 0 05/03/20 Discontinued D3 200-200 mg-unit Tab by mouth 18 daily. omeprazole-sodium Take 1 0 05/03/20 Discontinued bicarbonate (ZEGERID) capsule by 18 40-1.1 mg-gram per mouth every capsule morning before breakfast. Active Problems No known active problems Encounters Date Type Specialty Care Team Description 05/07/2018 Anesthesia Event Gastroenterology Jerry Murphy MD 05/07/2018 Surgery Gastroenterology Joaquin Marte MD COLONOSCOPY 05/07/2018 Hospital Encounter Gastroenterology Joaquin Marte MD 05/03/2018 Hospital Encounter Pre-Admission Testing Resource, [facility] Phone after 08/04/2017 Social History Tobacco Use Types Packs/Day Years Used Date Never Smoker Smokeless Tobacco: Never Used Alcohol Use Drinks/Week oz/Week Comments Yes occasional Sex Assigned at Date Recorded Not on file Job Start Date Occupation Industry Not on file Not on file Not on file Travel History Travel Start Travel End No recent travel history available. Last Filed Vital Signs Vital Sign Reading Time Taken Blood Pressure 121/70 05/07/2018 11:30 AM CDT Pulse 87 05/07/2018 11:30 AM CDT Temperature 36.5 C (97.7 F) 05/07/2018 10:45 AM CDT Respiratory Rate 16 05/07/2018 11:30 AM CDT Oxygen Saturation 96% 05/07/2018 11:30 AM CDT Inhaled Oxygen Concentration - - Weight 67.6 kg (149 lb 1.6 oz) 05/07/2018 7:57 AM CDT Height 154.9 cm (5' 1") 05/07/2018 7:57 AM CDT Body Mass Index 28.17 05/07/2018 7:57 AM CDT Plan of Treatment Not on file Procedures Procedure Name Priority Date/Time Associated Diagnosis Comments REPORT OF PROCEDURE - 05/07/2018 10:00 AM ENDOSCOPY URL CDT REPORT OF PROCEDURE - 05/07/2018 9:56 AM ENDOSCOPY URL CDT UPPER ENDOSCOPY,BIOPSY 05/07/2018 9:00 AM Esophagitis, reflux W/ASH TEST CDT Hx of colonic polyps COLONOSCOPY 05/07/2018 9:00 AM Esophagitis, reflux CDT Hx of colonic polyps after 08/04/2017 Results REPORT OF PROCEDURE - ENDOSCOPY URL (05/07/2018 10:00 AM CDT) Narrative Performed At REPORT OF PROCEDURE - ENDOSCOPY URL (05/07/2018 9:56 AM CDT) Narrative Performed At after 08/04/2017 Insurance Payer Benefit Plan / Group Subscriber ID Type Phone Address MEDICARE MEDICARE A B xxxxxxxxxxx Medicare AETNA - MGD CARE AETNA INDEMNITY NON CONTR xxxxxxxxx Comm
--- OUTSIDE RECORDS SUMMARY | 2018-08-05 08:58 | XMS REPORT | Continuity of Care Document ---
[...] Medical Group GERD (<span Resolved Problem 01/09/2018 ID="[id number]" Medical >Confirmed</span> Group ) IBS (<span Resolved Problem 01/09/2018 ID="[id number]" Medical >Confirmed</span> Group ) Night sweats Resolved Problem 01/09/2018 Medical Group Thyroid disease Resolved Problem 01/09/2018 Medical Group Medications Medication Details Route Status Patient Ordering Order Source Instructions Provider Date Fluoxetine 20 MG Oral 20 mg=1 Active Capsule [Prozac] cap, PO, 2017 Medical Daily, # 90 Group cap, 1 Refill(s), [facility]acy: [facility] losartan 50 mg oral See Active tablet Instruction 2018 Medical s, # 90 Group tab, TAKE 1 TABLET BY MOUTH EVERY DAY, Pharmacy: [facility] losartan 50 mg oral See No tablet Instruction Longer 2018 Medical s, # 90 Active Group tab, TAKE 1 TABLET BY MOUTH EVERY DAY, Pharmacy: [facility] levothyroxine 50 mcg See Active (0.05 mg) oral tablet Instruction 2018 Medical s, # 90 Group tab, Refill(s) 2, TAKE 1 TABLET BY MOUTH EVERY DAY, Pharmacy: [facility] Hydrochlorothiazide 25 mg=1 Active 25 MG Oral Tablet tab, PO, 2018 Medical Daily, # 90 Group tab, 3 Refill(s), Pharmacy: [facility] Fluoxetine 20 MG Oral 20 mg=1 Active Capsule [Prozac] cap, PO, 2016 Medical Daily, # 90 Group cap, 1 Refill(s), Pharmacy: [facility] #7470 FLUoxetine 10 mg oral See Active capsule Instruction 2017 Medical s, # 90 Group unknown unit, Refill(s) 2, TAKE ONE CAPSULE BY MOUTH EVERY DAY, Pharmacy: [facility] AZITHROMYCIN 250 MG 2 tabs No TABS today and Longer 2014 Medical one tab Active Group daily there after. MECLIZINE HCL 25 MG 1 tablet Active TABS twice a day 2013 Medical PRN for Group Dizziness MECLIZINE HCL 25 MG 1 tablet No TABS twice a day Longer 2013 Medical PRN for Active Group Dizziness COZAAR 50 MG TABS one daily Active 2013 Medical Group COZAAR 50 MG TABS one daily Active 2013 Medical Group COZAAR 50 MG TABS one daily Active 2013 Medical Group TRANSDERM-SCOP 1.5 MG as directed Active PT72 2013 Medical Group TRANSDERM-SCOP 1.5 MG as directed Active PT72 2013 Medical Group ZOVIRAX 5 % OINT Apply 4 to Active 5 times day 2013 Medical Group ZOVIRAX 5 % OINT Apply 4 to Active MH 5 times day 2014 Medical Group GABAPENTIN 300 MG TAKE 1 No 01/06/ MH CAPS TABLET BY Longer 2012 Medical MOUTH THREE Active Group TIMES A DAY EFFEXOR XR 75 MG 1 tablet Active [id number] daily 2012 Medical Group CALTRATE 600+D PLUS [...] XR 75 MG 1 tablet Active MH [id number] daily 2012 Medical Group GABAPENTIN 300 MG TAKE 1 No 01/06/ MH CAPS TABLET BY Longer 2012 Medical MOUTH THREE Active Group TIMES A DAY EFFEXOR XR 75 MG 1 tablet Active MH [id number] daily 2012 Medical Group LEVOTHYROXINE SODIUM 1 tablet Active MH 50 MCG TABS daily 2012 Medical Group LEVOTHYROXINE SODIUM 1 tablet Active MH 50 MCG TABS daily 2012 Medical Group LEVOTHYROXINE SODIUM 1 tablet Active MH 50 MCG TABS daily 2013 Medical Group LEVOTHYROXINE SODIUM 1 tablet Active [...] Reaction Status Date Comments Source type Reported Immunizations Immunization Date Site Status Last Comments Source Given Updated influenza completed Medical immunization 4 Group (Flu Vax) has been administered Hx influenza Left completed GE Result Comment: Medical vaccine-unspecif 4 Deltoid fluzone Group ied<sup>1</sup> (quadrivalent) no preservative (>3 yrs.) [[id number]]. Migrated from OBS ; Data migrated from [facility] on 09/28/2015. influenza completed Medical immunization 3 Group (Flu Vax) has been administered pneumococcal completed Medical immunization 2 Group administered pneumococcal completed GE Result Comment: Medical 23-valent 2 pneumovax. Group vaccine<sup>2</s Migrated from up> OBS ; Data migrated from [facility] on 09/28/2015. zoster vaccine completed GE Result Comment: Medical live<sup>3</sup> 9 zostavax. Group Migrated from OBS ; Data migrated from [facility] on 09/28/2015. dT (Diphtheria completed Medical and Tetanus) 9 Group booster given dT (Diphtheria completed Medical and Tetanus) 9 Group booster tetanus-diphther completed GE Result Comment: Medical ia 9 historical. Group toxoids<sup>4</s Migrated from up> OBS ; Data migrated from [facility] on 09/28/2015. influenza 10/28/200 completed Medical immunization 8 Group (Flu Vax) [...] Group Chemistry POTASSIUM 3.9 3.5 - 5.1 MEQ/L 2013 Medical mmol/L Group Chemistry CALCIUM 9.3 8.5 - 10.5 mg/dL 2013 Medical Group Chemistry BUN 8 mg/dL 7 - 22 08/13/ MH 2014 Medical Group Chemistry CREATININE 0.6 0.5 - 1.4 08/ MH mg/dL 2013 Medical Group Chemistry SODIUM 125 135 - 145 04/01/ MEQ/L 2013 Medical mmol/L Group Chemistry POTASSIUM 3.9 3.5 - 5.1 04/01/ MEQ/L 2013 Medical mmol/L Group Chemistry CALCIUM 9.3 8.5 - 10.5 08/ mg/dL 2013 Medical Group Chemistry SODIUM 125 135 - 145 04/01/ MEQ/L 2013 Medical mmol/L Group Chemistry POTASSIUM 3.9 3.5 - 5.1 04/01/ MEQ/L 2013 Medical mmol/L Group Chemistry CALCIUM 9.3 8.5 - 10.5 mg/dL 2013 Medical Group Chemistry SODIUM 125 135 - 145 04/01/ MEQ/L 2013 Medical mmol/L Group Chemistry POTASSIUM 3.9 3.5 - 5.1 04/01/ MH MEQ/L 2013 Medical mmol/L Group Chemistry CALCIUM 9.3 8.5 - 10.5 mg/dL 2013 Medical Group Chemistry TSH 1.380 0.360 - 02/11/ MH uIU/mL 3.740 2013 Medical Group Chemistry BUN 9 mg/dL 7 - 2013 Medical Group Chemistry CREATININE 0.6 0.5 - 1.4 02/11/ MH mg/dL 2013 Medical Group Chemistry SODIUM 133 135 - 145 02/11/ MH MEQ/L 2013 Medical mmol/L Group Chemistry POTASSIUM 4.3 3.5 - 5.1 02/11/ MH MEQ/L 2013 Medical mmol/L Group Chemistry CALCIUM 9.5 8.5 - 10.5 02/11/ mg/dL 2013 Medical Group Chemistry TSH 1.380 0.360 - 02/11/ MH uIU/mL 3.740 2013 Medical Group Chemistry BUN 9 mg/dL - 02/11/ 2013 Medical Group Chemistry CREATININE 0.6 0.5 - 1.4 02/11/ MH mg/dL 2013 Medical Group Chemistry SODIUM 133 135 - 145 02/11/ MH MEQ/L 2013 Medical mmol/L Group Chemistry POTASSIUM 4.3 3.5 - 5.1 06/ MH MEQ/L 2013 Medical mmol/L Group Chemistry SODIUM 133 135 - 145 /25/ MH MEQ/L 2013 Medical mmol/L Group Chemistry POTASSIUM 4.3 3.5 - 5.1 06/25/ MH MEQ/L 2013 Medical mmol/L Group Chemistry CALCIUM 9.5 8.5 - 10.5 06/25/ MH mg/dL 2013 Medical Group Chemistry TSH 1.520 0.360 - 10// MH uIU/mL 3.740 2012 Medical Group Chemistry TSH 1.520 0.360 - 10// MH uIU/mL 3.740 2012 Medical Group Chemistry TSH 1.520 0.360 - 10// MH uIU/mL 3.740 2012 Medical Group Chemistry [...] Chemistry BUN 9 mg/dL 7 - 22 05// MH 2012 Medical Group Chemistry BUN/CREAT 18 6 - 25 05/20/ MH 2012 Medical Group Chemistry ALBUMIN 4.5 3.5 - 5.0 05/20/ MH g/dL 2012 Medical Group Chemistry CALCIUM 9.3 8.5 - 10.5 05/20/ MH mg/dL 2012 Medical Group Chemistry SGPT (ALT) 17 U/L 0 - 65 05/20/ MH 2012 Medical Group Chemistry SGOT (AST) 15 U/L 0 - 37 05/20/ MH 2012 Medical Group Chemistry ALK PHOS 107 U/L 39 - 136 05/20/ MH 2012 Medical Group Chemistry TSH 0.830 0.360 - 05/20/ MH uIU/mL 3.740 2012 Medical Group Chemistry CHOLESTEROL 202 120 - 200 05/20/ MH mg/dl 2012 Medical Group Chemistry TRIGLYCERIDE 127 0 - 200 05/20/ MH mg/dl 2012 Medical Group Chemistry HDL 83 >=35 05/20/ MH mg/dl 2012 Medical Group Chemistry LDL 94 0 - 129 05/20/ MH mg/dl 2012 Medical Group Chemistry SODIUM 132 135 - 145 MEQ/L 2012 Medical mmol/L Group Chemistry SGOT (AST) 15 U/L 0 [...] - 450 K/CMM 2012 Medical /mm3 Group Mental Health Practitioner PAP SMEAR Done 2000 Medical Group Mental Health Practitioner PAP SMEAR Done 2000 Medical Group Mental Health Practitioner PAP SMEAR Done 2000 Medical Group Pathology [...] Number For Provider Date Date Visit [facility] [id number] Jeff 05/21 05/21 [place] Visit 030 , Medical Medical MD Group Group [facility] Lab Report [id number] Jeff 05/21 05/21 [place] 110 Medical Medical MD Group Group [facility] Lab Report [id number] Jeff 02/11 02/11 [place] 780 Medical Medical MD Group Group [facility] Office [id number] Jeff 02/11 02/11 [place] Visit 320 Medical Medical MD Group Group [facility] Lab Report [id number] Jeff 04/01 04/01 [place] 240 Medical Medical MD Group Group [facility] Office [id number] Jeff 04/01 04/01 [place] Visit 030 Medical Medical MD Group Group [facility] Office [id number] Jeff 07/10 07/10 [place] Visit 420 Medical Medical MD Group Group [facility] Office [id number] Jeff 12/22 12/22 [place] Visit 410 , Medical Medical MD Group Group [facility] Office [id number] Jeff 02/26 02/26 [facility] Visit 620 [facility] Medical MD [facility] Outpatient [id number] JEFF 02/26 [facility] [place] [facility] [id number] JEFF 09/02 [facility] [place] Outpatient [id number] JEFF 12/20 Active [facility] [place] Outpatient [id number] JEFF 02/09 [facility] [place] Outpatient [id number] JEFF 02/21 [facility] [place] Outpatient [id number] JEFF 03/10 [facility] [place] [facility] [id number] JEFF 04/13 [facility] [place] Outpatient [id number] JEFF 12/26 [facility] [place] Outpatient [id number] JEFF 06/14 [facility] Phone [phone] 07/09 07/11 Primary Message /2016 [facility] Phone [phone] 07/10 07/12 Primary Message /2016 [facility] Phone [phone] 08/22 08/24 Primary Message /2017 [facility] Phone [phone] 09/28 09/30 Primary Message /2017 [facility] Phone [phone] 10/02 10/04 Primary Message /2017 [facility] Procedures Procedure Code Date Perfomer Comments Source mammogram 50920 12/26/2011 Done [facility] mammogram 90600 12/26/2011 Completed Medical Group bone density 4002.65 10/16/2005 [facility] vaginal Pap smear 03245 06/21/2001 Done Medical results Group Carpal tunnel release [id number] Medical Group Cholecystectomy [id number] Medical Group 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
--- OUTSIDE RECORDS SUMMARY | 2018-08-05 08:58 | XMS REPORT | Continuity of Care Document ---
:1945 Author Organization [facility] Care Team Providers Name Role Phone MD Sera, Angel Unavailable Unavailable Insurance Providers Payer name Policy type / Policy ID Covered green party ID Policy Lu Coverage type [place] [employer] - [place] CHEMICAL (MEDICARE SUPPLEMENT) [place] [employer] - [place] CHEMICAL (MEDICARE SUPPLEMENT) Encounters Encounter Performer Location Date Lab Report Angel Zamora MD [facility] Feb 11, 2014 Problems Problem Effective Dates [...] TIMES A DAY EFFEXOR XR 75 MG [id number] 1 tablet daily January 06, 2013 Active [...] 2012January 06, platelet count PLATELETS 399 K/CMM [phone] /mm3 January 06, cholesterol, serum CHOLESTEROL 202 [...]
--- OUTSIDE RECORDS SUMMARY | 2018-08-05 08:58 | XMS REPORT | Continuity of Care Document ---
:1945 Author Organization [facility] Care Team Providers Name Role Phone MD Zamora Luis Unavailable Unavailable Insurance Providers Payer name Policy type / Policy ID Covered democrat ID Policy Lu Coverage type [place] [employer] - [place] CHEMICAL (MEDICARE SUPPLEMENT) [place] [employer] Encounters Encounter Performer Location Date Lab Report Angel Zamora MD [facility] May 21, 2013 Problems Problem Effective Dates [...] TIMES A DAY EFFEXOR XR 75 MG [id number] 1 tablet daily January 06, 2013 Active [...] 2012January 06, platelet count PLATELETS 399 K/CMM 126-726 4123 /mm3 January 06, cholesterol, serum CHOLESTEROL 202 [...]
--- OUTSIDE RECORDS SUMMARY | 2018-08-05 08:58 | XMS REPORT | Continuity of Care Document ---
[...] Location Date Office Visit Angel Zamora MD [facility] May 21, 2013 Problems Problem Effective [...] TIMES A DAY EFFEXOR XR 75 MG [id number] 1 tablet daily January 06, 2013 Active [...] 2012January 06, platelet count PLATELETS 399 K/CMM [phone] /mm3 January 06, cholesterol, serum CHOLESTEROL 202 [...]
--- OUTSIDE RECORDS SUMMARY | 2018-08-05 08:59 | XMS REPORT | Continuity of Care Document ---
:1945 Author Organization [facility] Care Team Providers Name Role Phone MD Sera, Angel Unavailable Unavailable Insurance Providers Payer name Policy type / Policy ID Covered green party ID Policy Lu Coverage type [place] [employer] - [place] CHEMICAL (MEDICARE SUPPLEMENT) [place] [employer] - [place] CHEMICAL (MEDICARE SUPPLEMENT) Encounters Encounter Performer Location Date Lab Report Angel Zamora MD [facility] Apr 01, 2014 Problems Problem Effective Dates [...] TIMES A DAY EFFEXOR XR 75 MG [id number] 1 tablet daily January 06, 2013 Active [...] 2012January 06, platelet count PLATELETS 399 K/CMM [phone] /mm3 Apr 01, urea nitrogen, blood BUN [...]
--- OUTSIDE RECORDS SUMMARY | 2018-08-05 08:59 | XMS REPORT | Continuity of Care Document ---
:1945 Author Organization [facility] Care Team Providers Name Role Phone MD Sera, Angel Unavailable Unavailable Insurance Providers Payer name Policy type / Policy ID Covered alliance party ID Policy Lu Coverage type [place] [employer] - [place] CHEMICAL (MEDICARE SUPPLEMENT) [place] [employer] - [place]EL CHEMICAL (MEDICARE SUPPLEMENT) Encounters Encounter Performer Location Date Office Visit Angel Zamora MD [facility] Apr [...] TIMES A DAY EFFEXOR XR 75 MG [id number] 1 tablet daily January 06, 2013 Active [...] 2012January 06, platelet count PLATELETS 399 K/CMM [phone] /mm3 Apr 01, urea nitrogen, blood BUN [...]
--- OUTSIDE RECORDS SUMMARY | 2018-08-05 08:59 | XMS REPORT | Continuity of Care Document ---
:1945 Author Organization [facility] Care Team Providers Name Role Phone MD Sera, Angel Unavailable Unavailable Insurance Providers Payer name Policy type / Policy ID Covered constitution party ID Policy Lu Coverage type [place] [employer] - [place]EL CHEMICAL (MEDICARE SUPPLEMENT) [place] [employer] - [place]EL CHEMICAL (MEDICARE SUPPLEMENT) Encounters Encounter Performer Location Date Office Visit Angel Zamora MD [facility] Feb 26, 2015 Problems Problem Effective Dates [...] TIMES A DAY EFFEXOR XR 75 MG [id number] 1 tablet daily January 06, 2013 Active [...] 2012January 06, platelet count PLATELETS 399 K/CMM [phone] /mm3 Apr 01, urea nitrogen, blood BUN [...]
--- OUTSIDE RECORDS SUMMARY | 2018-08-05 08:59 | XMS REPORT | Continuity of Care Document ---
:1945 Author Organization [facility] Care Team Providers Name Role Phone MD Sera, Angel Unavailable Unavailable Insurance Providers Payer name Policy type / Policy ID Covered green party ID Policy Lu Coverage type [place] [employer] - [place]EL CHEMICAL (MEDICARE SUPPLEMENT) [place] [employer] - [place]EL CHEMICAL (MEDICARE SUPPLEMENT) Encounters Encounter Performer Location Date Office Visit Angel Zamora MD [facility] Feb 26, 2015 Problems Problem Effective Dates [...] TIMES A DAY EFFEXOR XR 75 MG [id number] 1 tablet daily January 06, 2013 Active [...] 2012January 06, platelet count PLATELETS 399 K/CMM [phone] /mm3 Feb 26, hemoglobin, blood HGB 12.0 g/dL 12.0-16.0 2014Feb 26, hematocrit, blood HCT 35.1 % 36.0-48.0 Low 2014Feb 26, platelet count PLATELETS 438 K/CMM [phone] /mm3 Apr 01, urea nitrogen, blood BUN [...]
--- OUTSIDE RECORDS SUMMARY | 2018-08-05 08:59 | XMS REPORT | Continuity of Care Document ---
:1945 Author Organization [facility] Care Team Providers Name Role Phone MD Sera, Angel Unavailable Unavailable Insurance Providers Payer name Policy type / Policy ID Covered libertarian ID Policy Lu Coverage type [place] [employer] - [place]EL CHEMICAL (MEDICARE SUPPLEMENT) [place] [employer] - [place]EL CHEMICAL (MEDICARE SUPPLEMENT) Encounters Encounter Performer Location Date Office Visit Angel Zamora MD [facility] Feb 11, 2014 Problems Problem Effective Dates [...] TIMES A DAY EFFEXOR XR 75 MG [id number] 1 tablet daily January 06, 2013 Active [...] 2012January 06, platelet count PLATELETS 399 K/CMM [phone] /mm3 January 06, cholesterol, serum CHOLESTEROL 202 [...]
--- OUTSIDE RECORDS SUMMARY | 2018-08-05 08:59 | XMS REPORT | Continuity of Care Document ---
:1945 Author Organization [facility] Care Team Providers Name Role Phone MD [...] [facility] Jul 10, 2014 Problems Problem Effective Dates [...] TIMES A DAY EFFEXOR XR 75 MG [id number] 1 tablet daily January 06, 2013 Active [...] 2012January 06, platelet count PLATELETS 399 K/CMM [phone] /mm3 Apr 01, urea nitrogen, blood BUN [...]
--- OUTSIDE RECORDS SUMMARY | 2018-08-05 09:00 | XMS REPORT ---
[...] ND 0 Active not defined Levothyroxine Sodium [facility] [address]-25 Active not defined Prevacid [facility] [address]-44 Active not defined Valacyclovir HCl [facility] [address]-10 Active not defined Dexilant [facility] 91860955207 60 MG Orally Active 1 capsule Once a day ClearLax [facility] [address]-28 Active not defined Hydrochlorothiazide [facility] [address]-73 Active not defined Zegerid OTC [facility] [address]-35 Active not defined Calcium Citrate + D [facility] [address]-83 Active not defined Restasis [facility] [address]-67 Active not defined Vagifem [facility] [address]-94 Active not defined Symbicort [facility] 63930919072 160-4.5 Apr 04, Active 2 puffs MCG/ACT 2018 Inhalation Twice a day Prednisone [facility] 35547992852 10mg Tablet Apr 04, Active 3 daily x (3wk-30,20,10) Orally 2017 7, 2 daily x 7, 1 daily x 7 Aspir-81 [facility] [address]-61 Active not defined Sheila ND 0 Active not defined Nexium [facility] 95494312264 40 MG Orally Aug 29, Active 1 capsule Once a [place] 2018 [place] [address]-37 Active not defined Meclizine HCl [facility] [address]-80 Active not defined Results No Known Results Summary Purpose [employer] Submission
--- OUTSIDE RECORDS SUMMARY | 2018-08-05 09:00 | XMS REPORT ---
:1945 Author Organization [employer] Care Team Providers Name Role Phone Vince Arnold Provider Role Unavailable Allergies No Known Allergies Problems Problem Type Condition Code Onset Dates Condition Status Problem Chronic laryngitis (LPRD) J37.0 Active Medications No Known Medications Results No Known Results Summary Purpose [facility] Submission
--- OUTSIDE RECORDS SUMMARY | 2018-08-05 09:00 | XMS REPORT ---
[...] ND 0 Active not defined Losartan Potassium [facility] [address]-28 Active not defined ClearLax [facility] [address]-55 Active not defined Vagifem [facility] [address]-60 Active not defined Sheila ND 0 Active not defined Meclizine HCl [facility] [address]-90 Active not defined Nexium [facility] 27176659725 40 MG Orally Aug 29, Active 1 capsule Once a day 2017 Dexilant [facility] 39616714558 60 MG Orally Active 1 capsule Once a day Valacyclovir HCl [facility] [address]-01 Active not defined Restasis [facility] [address]-22 Active not defined Aspir-81 [facility] [address]-36 Active not defined Zegerid OTC [facility] [address]-68 Active not defined Hydrochlorothiazide [facility] [address]-37 Active not defined Levothyroxine Sodium [facility] [address]-09 Active not defined Calcium Citrate + D [facility] [address]-58 Active not defined Results No Known Results Summary Purpose [facility] Submission
--- OUTSIDE RECORDS SUMMARY | 2018-08-05 09:00 | XMS REPORT ---
:1945 Author Organization [employer] Care Team Providers Name Role Phone Vince Arnold Provider Role Unavailable Allergies No Known Allergies Problems Problem Type Condition Code Onset Dates Condition Status Problem Chronic laryngitis (LPRD) J37.0 Active Medications No Known Medications Results No Known Results Summary Purpose [employer] [employer] Submission
--- OUTSIDE RECORDS SUMMARY | 2018-08-05 09:00 | XMS REPORT | Continuity of Care Document ---
:1945 Author Organization [facility] Care Team Providers Name Role Phone MD Sera, Angel Unavailable Unavailable Insurance Providers Payer name Policy type / Policy ID Covered constitution party ID Policy Lu Coverage type [place] [employer] - [place] CHEMICAL (MEDICARE SUPPLEMENT) MEDIC[place]: [employer] - [place]EL CHEMICAL (MEDICARE SUPPLEMENT) Encounters Encounter Performer Location Date Office Visit Angel Zamora MD [facility] December 22, 2014 Problems Problem Effective [...] TIMES A DAY EFFEXOR XR 75 MG [id number] 1 tablet daily January 06, 2013 Active [...] 2012January 06, platelet count PLATELETS 399 K/CMM [phone] /mm3 Apr 01, urea nitrogen, blood BUN [...]
--- OUTSIDE RECORDS SUMMARY | 2018-08-05 09:00 | XMS REPORT ---
:1945 Author Organization [employer] Care Team Providers Name Role Phone Vince Arnold Provider Role Unavailable Allergies, Adverse Reactions, Alerts Substance Reaction Event Type N.K.D.A. Info Not Available Non Drug Allergy Problems Problem Type Condition Code Onset Dates Condition Status Assessment Cough R05 Active Problem Chronic laryngitis (LPRD) J37.0 Active Medications Medication Code Code Instructions Start End Status Dosage System Date Date ClearLax [facility] [address]-65 Active not defined Sheila ND 0 Active not defined Meclizine HCl [facility] [address]-96 Active not defined Prednisone [facility] 23065960397 10mg Tablet Apr 04, Active 3 daily x (3wk-30,20,10) Orally 2017 7, 2 daily x 7, 1 daily x 7 Valacyclovir HCl [facility] [address]-93 Active not defined Calcium Citrate + D [facility] [address]-84 Active not defined Levothyroxine Sodium [facility] [address]-01 Active not defined Restasis [facility] [address]-73 Active not defined Hydrochlorothiazide [facility] [address]-33 Active not defined Fluoxetine ND 0 Active not defined Aspir-81 [facility] [address]-52 Active not defined Vagifem [facility] [address]-26 Active not defined Dexilant [facility] 90709266389 60 MG Orally Active 1 capsule Once a day Losartan Potassium [facility] [address]-20 Active not defined Prevacid [facility] [address]-37 Active not defined Zegerid OTC [facility] [address]-07 Active not defined Symbicort [facility] 99876750251 160-4.5 Apr 04, Active 2 puffs MCG/ACT 2018 Inhalation Twice a day Results No Known Results Summary Purpose [facility]
[2018-08-05] MEDS ORDERED: EPINEPHRINE/PF 1 MG/ML AMP ONE (09:21)
[2018-08-05] MEDS ORDERED: NS 0.9% VIAL 10 ML ONE (09:21)
[2018-08-05] MEDS ORDERED: DUOVISC 1 KIT OPTH ONE (09:22)
[2018-08-05] MEDS ORDERED: MOXIFLOXACIN HCL 10 DROPS/ML **OR USE OPTH ONE (09:22)
[2018-08-05] MEDS ORDERED: BSS PLUS 500 ML BOTTLE IRR ONE (09:22)
[2018-08-05] MEDS ORDERED: LIDOCAINE 2% MPF 5 ML VIAL ONE (09:28)
[2018-08-05] MEDS ORDERED: BUPIVACAINE 0.25% PF 30 ML VIAL ONE (09:29)
[2018-08-05] MEDS ORDERED: CYCLOPENTOLATE 1% OPTH 2 ML ONE (09:29)
[2018-08-05] MEDS ORDERED: NA CHLORIDE 0.9% 500 ML ONE (09:29)
[2018-08-05] MEDS ORDERED: PHENYLEPHRINE 10% OPTH 5ML ONE (09:29)
[2018-08-05] MEDS ORDERED: TETRACAINE HCL 0.5% 2ML OPTH ONE (09:29)
[2018-08-05] MEDS ORDERED: LIDOCAINE HCL/PF 3.5% OPTH GEL ONE (09:39)
[2018-08-05] MEDS ORDERED: CYCLOPENTOLATE 1% OPTH 2 ML OPTH ONE ×2 (09:40→09:45)
[2018-08-05] MEDS ORDERED: PHENYLEPHRINE 10% OPTH 5ML OPTH ONE ×2 (09:40→09:45)
[2018-08-05] MEDS ORDERED: FENTANYL CITR 100 MCG/2 ML ONE (10:26)
[2018-08-05] MEDS ORDERED: MIDAZOLAM HCL 2 MG/2 ML INJ ONE (10:26)
[2018-08-05] MEDS ORDERED: LIDOCAINE 1% MPF 2 ML AMPULE ONE (10:52)
--- NOTE | 2018-08-05 11:23 | P.BOP ---
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
--- NOTE | 2018-08-05 22:00 | OP ---
Date of Procedure: 08/05/2018 Surgeon: Tamara Varela MD Anesthesiologist: Estuardo Bhatt CRNA and Saul Sexton MD. Preoperative Diagnosis: Nuclear sclerotic cataract and Fuchs dystrophy, left eye. Operation Performed: Phacoemulsification with intraocular lens implant, left eye. Anesthesia: Per cataract surgery. Complications: None. Description Of Procedure: In the operating room the patient was prepped and draped in the usual ster ile fashion for ophthalmic surgery. A lid speculum was placed in the left eye. Two paracentesis sit es were made superiorly and inferiorly in the limbal cornea. Viscoat was placed in the anterior lucy zenia and a crescent blade was used to make a corneal groove and tunnel, and a keratome was used to ent er the anterior chamber. Provisc was placed in the anterior chamber and a 360 degree capsulotomy was performed with a cystitome. The lens was hydrodissected with BSS and rotated freely. The lens was removed with a stop and chop technique. 4.3 Phaco CDE was used to remove the lens. Residual cortex was removed with the irrigation and aspiration. Provisc was placed in the capsular bag. A ZCB00 +22 .5 lens was placed in the capsular bag without complications. Irrigation and aspiration were used to remove residual viscoelastic. The paracentesis sites were hydrated with BSS. The wound and paracen tesis sites were inspected and found to be watertight. Vigamox 0.07 cc was placed intracamerally at the end of the procedure. The eye was irrigated with balanced salt solution. The eye was patched wi th a soft cotton patch and Montoya metal shield. The patient was returned to day surgery in good condition. Comments: Akten was placed in the eye in day surgery and irrigated out of the eye with BSS in the OR . Preservative-free 1% lidocaine was placed in the anterior chamber prior to Viscoat. Discharge Instructions: Ms. Martinez is discharged to home in good condition and is to follow up with Dr. Varela in the morning. SEDA/JUVENTINO Voice ID: [id number] Report ID: [id number]
== END 2018-08-05 11:50 | disposition home or self-care (01) ==
LOC: OR 08:49
PROVIDERS: ATTEND Ophthalmology Retina Specialist
PROC: 08RK3JZ Replacement of Left Lens with Synthetic Substitute, Percutaneous Approach (ICD-10-PCS; principal; 2018-08-05 10:15)
DX: H25.12 Age-related nuclear cataract, left eye (principal); H18.51 Endothelial corneal dystrophy; I10 Essential (primary) hypertension; E07.9 Disorder of thyroid, unspecified; K21.9 Gastro-esophageal reflux disease without esophagitis; Z85.3 Personal history of malignant neoplasm of breast; Z83.518 Family history of other specified eye disorder; Z82.49 Family history of ischemic heart disease and other diseases of the circulatory system
CPT/HCPCS: 66984; J0171; J2001; J2250; J3010